=== PATIENT | female | born 1935 | race Caucasian/White ===

== ENCOUNTER 2024-12-09 14:46 | Outpatient (AMB) | payer MEDICARE, SELFPAY ==
--- NOTE | 2024-12-09 14:48 | MHC.OFFVIS ---
Intake Visit Reasons: delirium Medication List - Last Reconciled 12/09/24 by Santy Parham MD acetaminophen 325 mg PO QID PRN amlodipine 5 mg PO DAILY furosemide 40 mg PO DAILY losartan 50 mg PO DAILY potassium chloride ER 20 mEq PO BID ropinirole ER 4 mg PO BEDTIME sertraline 75 mg PO DAILY sotalol 160 mg PO BID trazodone 50 mg PO BEDTIME warfarin 2 mg PO DAILY HPI Comments Details: 89 yo RH woman with h/o a fibb on anticoagulation was here with her two daughters for explanation of her clinical picture or symptoms. As per her daughter, her first episode with change in mental status happened in May when she was noted to be paranoid and delusional. She was taken to [facility] and probably was prescribed olanzapine. After that she was referred to Dr. Orozco. She took olanzapine after a few weeks as she got better. She had another episode a year later when she was taken to [facility] with same symptoms. She was accusing everybody and was confused. She was given diagnosis of dementia with psychosis. More recently, in Jan 2024 she was in [facility] again with another psychotic event. Previously she was also given risperidone and haloperidol but apparently she did not take it. She was distraught saying that nothing was wrong with her and she wanted to go home. [facility] Medical History (Updated 12/09/24 @ 16:01 by Santy Parham MD) Senile osteoporosis Right shoulder pain RLS (restless legs syndrome) Rectocele Insomnia HLD (hyperlipidemia) Hypertension FH: total knee replacement Carotid stenosis Atrial fibrillation Aortic stenosis Surgical History (Updated 12/07/24 @ 10:45 by Og Blackburn MA) Hx of total knee arthroplasty H/O eye surgery History of carpal tunnel release H/O aortic valve replacement H/O cystocele repair Review of Systems Const Details: Constitutional:?No fever, chills, fatigue, weight loss, or night sweats. HEENT:?No headache, vision changes, hearing loss, nasal congestion, sore throat. Cardiovascular:?No chest pain, palpitations, orthopnea, PND, or leg swelling. Respiratory:?No cough, shortness of breath, wheezing, or hemoptysis. Gastrointestinal:?No nausea, vomiting, abdominal pain, diarrhea, or constipation. Genitourinary:?No dysuria, frequency, incontinence, or hematuria. Musculoskeletal:?No joint pain, stiffness, weakness, or muscle aches. Neurological:?Denies any problem with memory or mentation Psychiatric:?Anxious, stressed. Endocrine:?No heat/cold intolerance, polydipsia, polyuria, or hair/skin changes. Hematologic/Lymphatic:?No easy bruising, bleeding, or lymphadenopathy. Integumentary (Skin):?No rash, lesions, itching, or color changes. Allergic/Immunologic:?No seasonal allergies, hives, or recurrent infections. Physical Exam Neuro Other: Mental Status: Alert and oriented to person, place, and time. Normal attention. Normal spontaneous speech, fluency, and comprehension. MMS: 29. She was also distraught, started crying, and was blaming her daughters for whatever was happening. Cranial Nerves: CN II: Visual howard full to confrontation, visual acuity intact. CN III, IV, : Pupils equal, round, reactive to light and accommodation. Extraocular movements are normal. CN V: Facial sensation is normal. CN VII: Facial movements symmetrical. CN VIII: Hearing intact to bedside conversation is normal. CN IX, X: Palate elevates symmetrically. CN XI: Shoulder shrug and head turn symmetrical. CN XII: Tongue midline without atrophy or fasciculations. Motor: DTRs are 1+ with flexor planters. Coordination: [id number] is ok Gait and Station: Cautious. Extrapyramidal: Full facial expressions and blinking. No rigidity. Movements are appropriate with no tremor or abnormality. Speech: Normal; no dysarthria or tremor. Assessment & Plan Assessment & Plan (1) Dementia without behavioral disturbance, psychotic disturbance, mood disturbance, or anxiety: Comment: MRI brain WO at [facility] in October 2024: Mild biparietal atrophy, mild MVD Labs at [facility] in September of 2024: B12 was 476, TSH was 0.38, metabolic profile was normal. Code(s): F03.90 - Unspecified dementia, unspecified severity, without behavioral disturbance, psychotic disturbance, mood disturbance, and anxiety Category: Medical Qualifiers: Dementia type: unspecified type Dementia severity: moderate Qualified Code(s): F03.B0 - Unspecified dementia, moderate, without behavioral disturbance, psychotic disturbance, mood disturbance, and anxiety Plan Impression: 89 yo woman who was sent here for possibility of dementia. As per her daughter, her problem started around 2021 when she was noted to have symptoms of paranoia and delusion and was admitted [facility]. In the hospital, she was probably treated with olanzapine which she took for few weeks afterwards. She was referred to a neurologist in [place] but it is not clear if she continue to take any antipsychotic medicine. She did get better but had another similar episode a year later when she was admitted again either and [facility] or in [facility]. Daughter stated that hospital wanted to give her haloperidol but she, her daughter, was concerned about it and was not given. Probably risperidone was prescribed, which she probably did not take it on regular basis or for long. In any case, she got better again but had another similar episode a year later. More recently she was at [facility] with complaints of shortness of breath and was noted to be with behavioral symptomatology. Patient believe that there was nothing wrong with her while her daughter stated that she was unable to take care of her affairs and head symptoms of delusions and paranoia and was accusing her daughters of things that were not true. Her formal mini-mental status examination revealed no significant abnormality. On the other hand, her behavior was abnormal with significant distraught, anxiety, restlessness, an augmentation with the daughter. She continued to complain about [facility] in how that was responsible for her condition. Recommendations: My recommendation was to have geriatric psychiatric team evaluate her for either inpatient or outpatient proper behavioral counseling, therapy, and pharmacological treatment. I call emergency room downstairs and asked him to have her evaluated. My staff would help her go down with the daughters. Coding Level of Care Code Tele [facility] Pt Level 5 (51165) Diagnoses Moderate dementia without behavioral disturbance, psychotic disturbance, mood disturbance, or anxiety, unspecified dementia type F03.B0 Dementia type: unspecified type Dementia severity: moderate
--- OUTSIDE RECORDS SUMMARY | 2024-12-09 15:20 | XMS_ITS | Clinical Summary ---
Author Organization [address] Address [address] [place] [phone] Phone Care Team Providers Care Deck Supervisor Name Role Phone Sixto Bustamante MD Primary Care Provider [phone] Allergies Active Allergy Reactions Criticality Noted Date Comments Naproxen Hives 09/07/2024 Medications acetaminophen (TYLENOL) 325 mg tablet Take 2 tablets (650 mg total) by mouth if needed. 4 Active amLODIPine (NORVASC) 5 mg tablet Take 1 tablet (5 mg total) by mouth 1 (one) time each day. 4 Active traZODone (DESYREL) 50 mg tabletIndicatio ns:Insomnia, unspecified Take 1 tablet (50 mg total) by mouth at bedtime. 90 tablet 1 5 Active sotaloL (BETAPACE) 160 mg tablet Take 1 tablet (160 mg total) by mouth 2 (two) times a day. 180 tablet 1 5 Active potassium chloride (KLOR-CON) 20 mEq CR tablet Take 1 tablet (20 mEq total) by mouth 2 (two) times a day. 180 tablet 1 5 Active furosemide (LASIX) 40 mg tablet Take 1 tablet (40 mg total) by mouth 1 (one) time each day. 135 tablet 1 5 Active warfarin (COUMADIN) 2 mg tablet Take 1 tablet (2 mg total) by mouth 1 (one) time each day. 90 tablet 5 Active ipratropium-alb uteroL (DUONEB) 0.5-2.5 mg/3 mL nebulizer solutionIndicat ions:Acute hypoxemic respiratory failure (CMS/[facility] V24, CMS/[facility] V28) Take 3 mL by nebulization every 6 (six) hours. 360 mL 5 Active losartan (COZAAR) 50 mg tablet Take 1 tablet (50 mg total) by mouth 1 (one) time each day. Active rOPINIRole (REQUIP) 2 mg tablet Take 2 tablets (4 mg total) by mouth at bedtime. 180 each 3 5 11/10/19 26 Active sertraline (ZOLOFT) 25 mg tablet Take 3 tablets (75 mg total) by mouth 1 (one) time each day. 270 each 5 02/08/20 25 Active Active Problems Problem Noted Date Diagnosed Date Acute hypoxemic respiratory failure ([facility] V24, [facility] V28) 10/14/2024 Acromioclavicular joint arthritis 05/04/2024 Hyperlipidemia 05/04/2024 Overview (05/04/2024): Last Assessment & Plan: The patient has a history of CAD. She is currently not on any lipid-lowering therapy. Will order a lipid panel to evaluate her lipid control and then we will need to make any adjustments in her lipid-lowering therapy. Insomnia 05/04/2024 Rotator cuff tear arthropathy of right shoulder 05/04/2024 Subacromial bursitis of right shoulder joint 01/2024 PAF (paroxysmal atrial fibri llation) ([facility] V24, [facility] V28) 04/15/2024 Assessment & Plan (09/07/2024 9:59 AM EDT): Patient with history of paroxysmal atrial fibrillation, continuing on anticoagulation therapy with Coumadin. She denies any abnormal bleeding. Her heart rate is well-controlled today at 80 bpm and is in a sinus rhythm. She continues on sotalol, no increased QTc was noted on her EKG from previous. Unspecified diastolic (conge stive) heart failure (CMS/HCC V24, CMS/HCC V28) 02/18/2024 Delirium due to known physiological condition Hypo-osmolality and hyponatremia 02/18/2024 Urinary tract infection, site not specified 01/26 Anemia 05/11/2022 CAD (coronary artery disease) 05/11/2022 Overview (05/04/2024): Last Assessment & Plan: Patient has a history of coronary artery disease. At her last office visit, she was reporting symptoms of exertional dyspnea and underwent an echocardiogram and pharmacological nuclear stress test. The stress test was noted to be likely normal with TID elevated/abnormal. LVEF was normal. After her stress test was completed, we discussed these results in depth. We discussed that her symptoms of dyspnea could have multiple etiologies and that if clinical suspicion for CAD is high of an alternative modality could be considered with a cardiac CT scan. At that time, the patient did not want to undergo further testing. We discussed this again today in depth and discussed with her daughter as well. Her symptoms are very mild and have not been limiting her activity levels. She denies any anginal symptoms. She does not want to undergo further testing at this point given her symptoms are stable. She will notify me of any changes in her symptoms. She will continue on her cardioprotective medical therapy with amlodipine and warfarin as prescribed. Assessment & Plan (09/07/2024 9:59 AM EDT): Patient has history of nonobstructive CAD. She denies chest discomfort. Her dyspnea on exertion has not worsened from her baseline. She reports it is progressively increased with exertion over the past several years. She denies episodes of dyspnea at rest. She had a likely normal nuclear stress test in September 2023. It was recommended after that nuclear stress test for her to undergo a cardiac CT, yet she declined. She continues on amlodipine and coumadin. Patient advised to seek emergency medical attention by calling 911 if they were to develop severe dyspnea, chest pain that did not resolve with rest or nitroglycerin, or if they were to faint. I have reviewed with the patient the importance of a heart healthy lifestyle which includes eating a low-fat low-salt diet, getting regular exercise, maintaining a healthy weight, not smoking, and following up with routine medical care. Orders: Ambulatory referral to Cardiology ECG 12 lead Depression with anxiety 05/11/2022 E coli bacteremia 05/11/2022 Hyperbilirubinemia 05/11/2022 Mitral regurgitation 05/11/2022 Sepsis ([facility] V24, [facility] V28) 05/11/2022 Swelling of lower extremity 05/11/2022 Syncope 05/11/2022 Overview (05/04/2024): Last Assessment & Plan: Patient denies any recurrent issues with syncope. 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 We will continue to monitor for any recurrent symptoms. Dyspnea 03/12/2022 Overview (05/04/2024): Last Assessment & Plan: The patient has a longstanding history of dyspnea on exertion sensation which may be multifactorial with multiple etiologies. On today's visit, she reports that her symptoms are mild and have not worsened and she continues to participate in her daily activities without significant limitations. We discussed this in depth today. She underwent a pharmacological nuclear stress test as outlined above as well as an echocardiogram. At this point, she does not want to undergo further testing with pulmonary function testing or cardiac CT scan. She will continue her current therapies and notify me of any changes in her symptoms. Patient advised to seek emergency medical attention by calling 911 if they were to develop severe dyspnea, chest pain that did not resolve with rest, or if they were to faint. AMS (altered mental status) 03/08/2022 Right shoulder pain 09/15/2020 Glenohumeral arthritis, right 02/25/2019 Balance problem 01/06/2019 Arthritis of knee, right 01/06/2019 Anxiety 10/28/2018 Primary osteoarthritis of right knee 09/30/2018 Restless leg syndrome 04/16/2018 Knee pain 03/24/2018 Overview (05/04/2024): F/u ortho Dr. Malhotra History of total knee replacement 03/11/2018 Overview (05/04/2024): Left Dr. Malhotra 2016 COPD (chronic obstructive pu lmonary disease) ([facility] V24, [facility] V28) 02/21/2018 Dizziness 12/26/2017 Elevated blood pressure reading 12/26/2017 Labile blood pressure 12/26/2017 Right bundle branch block (RBBB) 12/26/2017 H/O aortic valve replacement 09/17/2016 Overview (05/04/2024): Comments: DR MARTIN AT [facility] [place] BIOPROSTHETIC VALVE IN 2013, cardiology f/u Dr. Dumont Last Assessment & Plan: Her valve is been stable. She has no symptoms from this. We will continue to monitor this. She will be getting an echocardiogram done due to her recent dyspnea and this will be also an evaluation of her aortic valve. Carotid stenosis 03/21/2016 Aortic stenosis 01/11/2016 Overview (05/04/2024): Comments: porcine valve Last Assessment & Plan: Patient has a history of aortic valve stenosis status post bioprosthetic aortic valve replacement via TAVR in 2014. She underwent an echocardiogram July 2023 which showed bioprosthetic aortic valve well-seated and functioning normally. Will continue to monitor with periodic echocardiograms. Assessment & Plan (09/07/2024 9:59 AM EDT): Patient has history of aortic valve stenosis status post TAVR in 2014. Her last echocardiogram was completed in July 2023 which showed the bioprosthetic aortic valve was well-seated and functioning normally. Will continue to monitor and update echocardiogram. Patient has been educated on endocarditis prophylaxis. Orders: Transthoracic echocardiogram (TTE) complete with PRN contrast, bubble, strain, and 3D order panel; Future perflutren lipid microsphere (DEFINITY) 1.3 mL in sodium chloride 0.9% 8.7 mL injection Spinal stenosis 06/03/2015 Bladder prolapse, female, acquired 04/12/2015 Rectocele 04/12/2015 HTN (hypertension) 07/17/2005 Overview (05/04/2024): Last Assessment & Plan: Patient's blood pressure is well-controlled today with a reading 120/70. She will continue her current hypertensive medication regimen as prescribed. Assessment & Plan (09/07/2024 9:59 AM EDT): Blood pressure is well-controlled today, continue on current antihypertensive medication regimen. Obesity, unspecified 07/17/2005 Senile osteoporosis 07/17/2005 Encounters Date Type Department Care Team Description 12/09/2024 Anticoagulation - Warfarin Visit [facility] [address] [facility] [address] [place] [phone] Andrew Cisneros MD PAF (paroxysmal atrial fibrillation) (CMS/HCC V24, CMS/HCC V28) (Primary Dx) 12/08/2024 1:55 PM EDT Lab Draw Station - [place] [address] [place] [address] Atrial fibrillation, unspecified type (CMS/HCC V24, CMS/HCC V28) 11/20/2024 8:12 AM EDT - 11/20/2024 11:59 PM EDT Hospital Encounter [facility] MRI [address] [place] [phone] Delirium due to known physiological condition Discharge Disposition: Home or Self Care 11/17/2024 12:30 PM EDT Ancillary Procedure [facility] [address] Daljit [address] [place] [phone] Aortic valve stenosis, etiology of cardiac valve disease unspecified 11/17/2024 Telephone [facility] [address] Daljit [address] [place] [phone] Juno Coffman Hypertension (Blood pressure was 193/101 pre exam with an automatic machine. Post exam b/p was still high at 183/107 again with the automatic machine. The patient refused to talk to an REGINALD and was determined to leave. I had a chance to talk to the daughter and told her about the high blood pressure. So at least she knows.) 11/13/2024 Anticoagulation - Warfarin Visit [facility] [address] [place] [phone] Andrew Cisneros MD PAF (paroxysmal atrial fibrillation) ([facility]/HCC V24, CMS/HCC V28) (Primary Dx) 11/10/2024 Telephone [facility] - [place] [address] [facility] [address] [place] [address] Sixto Bustamante MD 11/09/2024 Telephone Internal Medicine [facility] [address] [facility] [address] [place] [phone] Sixto Bustamante MD 11/05/2024 Anticoagulation - Warfarin Visit [facility] [address] [place] [phone] Andrew Cisneros MD PAF (paroxysmal atrial fibrillation) (CMS/HCC V24, CMS/HCC V28) (Primary Dx) 10/29/2024 11:35 AM EDT Lab Draw Station [facility] [address] [place] [phone] Atrial fibrillation, unspecified type (CMS/HCC V24, CMS/HCC V28) 10/29/2024 Anticoagulation - Warfarin Visit [facility] [address] [place] [phone] Andrew Cisneros MD PAF (paroxysmal atrial fibrillation) (CMS/HCC V24, CMS/HCC V28) (Primary Dx) 10/26/2024 Telephone Internal Medicine [facility] [address] [facility] [address] [place] [phone] Sixto Bustamante MD Appointment (neurology) 10/22/[address] [facility] [address] [place] [phone] Delma Ibanez, [employer] COPD 10/21/2024 10:30 AM EDT Office Visit Internal Medicine [facility] [address] [facility] [address] [place] [phone] Sixto Bustamante MD Hospital discharge follow-up (Primary Dx); Acute respiratory failure, unspecified whether with hypoxia or hypercapnia (CMS/HCC V24, CMS/HCC V28); Depression with anxiety; Delirium due to known physiological condition; Chronic diastolic congestive heart failure (CMS/HCC V24, CMS/HCC V28); PAF (paroxysmal atrial fibrillation) (CMS/HCC V24, CMS/HCC V28); Primary hypertension 10/21/2024 Anticoagulation - Warfarin Visit [facility] [address] [place] [address] Andrew Cisneros MD PAF (paroxysmal atrial fibrillation) ([facility]/HCC V24, CMS/HCC V28) (Primary Dx) 10/20/2024 Anticoagulation - Warfarin Visit [facility] [address] [place] [address] Andrew Cisneros MD PAF (paroxysmal atrial fibrillation) ([facility] V24, [facility] V28) (Primary Dx) 10/20/2024 Telephone Internal Medicine [facility] [address] [phone] Sixto Bustamante MD Hospital Follow-up 10/14/2024 10:22 AM EDT - 10/16/2024 5:30 PM EDT Hospital Encounter [facility] [address] [place] [phone] Zuleika Mayer MD Nasser, Nada S, MD Dyspnea, unspecified type (Primary Dx); Acute bronchiolitis due to human metapneumovirus; Hypoxia; Acute hypoxemic respiratory failure ([facility] V24, CMS/HCC V28); Swelling of lower extremity; Chronic obstructive pulmonary disease with acute lower respiratory infection ([facility] V24, [facility]/HCC V28) Discharge Disposition: [place] [facility]06/2024 Telephone Internal Medicine [facility] [address] [phone] Sixto Bustamante MD Joseph: Medication problem 09/22/2024 11:15 AM EDT Lab Draw Station [facility] [address] [place] [phone] Atrial fibrillation, unspecified type ([facility] V24, [facility]/HCC V28) 09/22/2024 Anticoagulation - Warfarin Visit [facility] [address] [place] [address] Andrew Cisneros MD PAF (paroxysmal atrial fibrillation) ([facility] V24, [facility] V28) (Primary Dx) from Last 3 Months Immunizations Name Administration Dates Next Due Influenza Quadravalent, 0.5m l (Fluad) 65yo and older 03/07/2023,05/04/2021 Influenza Quadravalent, MDCK , 0.5ml, preservative free (Flucelvax) 6mo and older 02/12/2017 Influenza trivalent, 0.5mL ( Fluad) 65yo and older 03/31/2015 Influenza trivalent, 0.5mL ( Fluzone High-dose) 65yo and older 04/06/2024,03/15/2019,03/30/2018 Influenza trivalent, 0.5mL, preservative free (Fluarix; FluLaval; Fluzone) ages 6mo and older (Afluria) 3 years and older 02/04/2020,03/21/2016,03/02/2014,05/30 Influenza, Unspecified 02/14/2020 PPD Test 02/19/2024 Pneumococcal conjugate 13 va lent (Prevnar 13, PCV13) 2mo and older 09/15/2014 Pneumococcal conjugate 20 va lent (Prevnar 20, PCV 20) 2mo and older 02/21/2024 Pneumococcal polysaccharide 23 valent (Pneumovax 23) 2yo and older 09/13/2014,01/25/2001,10/31/2000 RSV, bivalent, protein subun it RSVpreF, 0.5mL, Preservative Free (ABRYSVO) 60yo and older or 32 through 36 wks of 03/07/2023 Td Tetanus diptheria (Tdvax) 7yo and older 10/31/2000,10/25/2000 Td, Unspecified 10/31/2000 Zoster Live 08/25/2014 Surgical History Surgery Date Site/Laterality Comments CARPAL TUNNEL RELEASE -2017 Right PROCEDURE: HISTORICAL CARPAL TUNNEL REL; COMMENT: Dr. Malhotra AORTIC VALVE REPLACEMENT 2014 PROCEDURE: HISTORICAL AORTIC VALVE REPL TOTAL KNEE ARTHROPLASTY 2016 Left PROCEDURE: HISTORICAL TOTAL KNEE REPLACE; COMMENT: Dr. Malhotra EYE SURGERY Bilateral PROCEDURE: HISTORICAL EYE SURGERY; COMMENT: Dr. Lawler- cataracts Medical History Medical History Date Comments Personal history of tobacco use, presenting hazards to health 07/17/2005 DX:Personal history of to bacco use, presenting hazards to health Senile osteoporosis 07/17/2005 DX:Senile os teoporosis Aortic stenosis 01/11/2016 DX:Aortic stenos is; COMMENT: Comments: porcine valve Atrial fibrillation ([facility] V24, [facility] V28) 07/31/2017 DX:Atrial fibrillation (HCC) Carotid stenosis 03/21/2016 DX:Carotid sten osis Cystocele 04/12/2015 DX:Cystocele Rectocele 04/12/2015 DX:Rectocele Spinal stenosis 06/03/2015 DX:Spinal stenos is History of total knee replacement 03/11/2018 DX:History of total knee replacement HTN (hypertension) 07/17/2005 DX:HTN (hyper tension) Restless leg syndrome 07/17/2005 DX:Restles s leg syndrome Hyperlipidemia DX:Hyperlipidemi a Insomnia DX:Insomnia Right shoulder pain DX:Right ramu ulder pain Family History Relation Name Status Comments Daughter Alive Social History Tobacco Use Types Packs/Day Years Used Date Smoking Tobacco: Former Cigarettes Q uit: 06/18/2014 Smokeless Tobacco: Never Alcohol Use Standard Drinks/Week Comments Yes 0 (1 standard drink = 0.6 oz pur e alcohol) 1 drink per wk Interpersonal Safety Answer Date Record ed Physical Abuse 10/14/2024 Verbal Abuse 10/14/2024 Comments No Sex and Gender Information Value Date Recorded Sex Assigned at Not on file Legal Sex Female 1:43 PM EST Gender Identity Not on file Sexual Orientation Not on file Obstetrics History Last Filed Vital Signs Vital Sign Reading Time Taken Comments Blood Pressure 193/101 11/17/2024 1:27 PM EDT Pulse 72 10/21/2024 10:26 AM EDT Temperature 36.6 C (97.9 F) 10/21/2024 10:26 AM EDT Respiratory Rate 20 10/16/2024 9:00 AM EDT Oxygen Saturation 94% 10/21/2024 10:26 AM EDT Inhaled Oxygen Concentration - - Weight 70.8 kg (156 lb) 11/17/2024 1:27 PM EDT Height 152.4 cm (5') 11/17/2024 1:27 PM EDT Body Mass Index 30.47 11/17/2024 1:27 PM EDT Plan of Treatment Health Maintenance Due Date Last Done Comments DTaP,Tdap,and Td Vaccines (4 - Td or Tdap) 10/31/2010 10/31/2000, 10/31/2000, 10/25/2000 Zoster Vaccines (2 of 3) 10/20/2014 08/25/2014 Cholesterol Screening (Lipid Panel) 05/03/2022 Medicare Annual Wellness Visit 05/03/2022 Osteoporosis Screening (Bone Density Screening) 05/03/2022 Social Influencers of Health Screening 05/03/2022 COVID-19 Vaccine (4 - season) 2024 06/17/2022, 07/15/2020, 06/24/2020 Depression Screening 05/27/2024 Influenza Vaccine (#1) 2025 , 03/07/2023, 05/04/2021, Additional history exists Falls Risk Assessment 10/16/2025 10/16/2024 Hypertension/CHF/CAD Annual BMP Blood Test 10/16/2025 10/16/2024, 10/15/2024, 10/14/2024, Additional history exists RSV Immunization Adult Patients Completed 03/07/2023 Pneumococcal Vaccine: 50+ Years Completed 02/21/2024, 09/15/2014, 09/13/2014, Additional history exists HIB Vaccines Aged Out No longer eligi ble based on patient's age to complete this topic HPV Vaccines Aged Out No longer eligi ble based on patient's age to complete this topic Hepatitis A Vaccines Aged Out No long er eligible based on patient's age to complete this topic Hepatitis B Vaccines Aged Out No long er eligible based on patient's age to complete this topic IPV Vaccines Aged Out No longer eligi ble based on patient's age to complete this topic MMR Vaccines Aged Out No longer eligi ble based on patient's age to complete this topic Meningococcal ACWY Vaccine Aged Out N o longer eligible based on patient's age to complete this topic Meningococcal B Vaccine Aged Out No l onger eligible based on patient's age to complete this topic RSV Immunization Patients Under 20 months Aged Out No longer eligible based on patient's age to complete this topic Varicella Vaccines Aged Out No longer eligible based on patient's age to complete this topic Procedures Procedure Name Priority Date/Time Associated Diagnosis Comments PROTHROMBIN TIME WITH INR Routine 12/08/2024 1:52 PM EDT Atrial fibrillation, unspecified type (CMS/HCC V24, CMS/HCC V28) MR BRAIN WO CONTRAST Routine 11/20/2024 9:03 AM EDT Delirium due to known physiological condition PROTHROMBIN TIME WITH INR Routine 11/13/2024 11:58 AM EDT Atrial fibrillation, unspecified type (CMS/HCC V24, CMS/HCC V28) PROTHROMBIN TIME WITH INR Routine 11/05/2024 10:17 AM EDT Atrial fibrillation, unspecified type (CMS/HCC V24, CMS/HCC V28) PROTHROMBIN TIME WITH INR Routine 10/29/2024 11:43 AM EDT Atrial fibrillation, unspecified type (CMS/HCC V24, CMS/HCC V28) PROTHROMBIN TIME WITH INR Routine 10/21/2024 12:30 PM EDT Atrial fibrillation, unspecified type (CMS/HCC V24, CMS/HCC V28) ECG ANNOTATED 10/17/2024 TRIIODOTHYRONINE FREE Routine 10/16/2024 5:42 AM EDT FREE THYROXINE WITH REFLEX TO FREE TRIIODOTHYRONINE Routine 10/16/2024 5:42 AM EDT CBC WITH AUTO DIFFERENTIAL Routine 10/16/2024 5:42 AM EDT TROPONIN I HIGH SENSITIVITY Routine 10/16/2024 5:42 AM EDT THYROID STIMULATING HORMONE WITH REFLEX TO FREE T4 AND FREE T3 Routine 10/16/2024 5:42 AM EDT PHOSPHORUS Routine 10/16/2024 5:42 AM EDT MAGNESIUM Routine 10/16/2024 5:42 AM EDT COMPREHENSIVE METABOLIC PANEL Routine 10/16/2024 5:42 AM EDT PROTHROMBIN TIME WITH INR Routine 10/16/2024 5:42 AM EDT CBC AND DIFFERENTIAL Routine 10/16/2024 5:42 AM EDT OXYGEN THERAPY, ADULT Routine 10/15/2024 8:02 AM EDT VITAMIN B12 Add-On 10/15/2024 6:39 AM EDT PHOSPHORUS Add-On 10/15/2024 6:39 AM EDT MAGNESIUM Add-On 10/15/2024 6:39 AM EDT C-REACTIVE PROTEIN Add-On 10/15/2024 6: 39 AM EDT PROTHROMBIN TIME WITH INR Routine 10/15/2024 6:39 AM EDT COMPLETE BLOOD COUNT Routine 10/15/2024 6:39 AM EDT BASIC METABOLIC PANEL Routine 10/15/2024 6:39 AM EDT OXYGEN THERAPY, ADULT Routine 10/14/2024 8:01 PM EDT ECG 12-LEAD STAT 10/14/2024 5:37 PM EDT OXYGEN THERAPY, ADULT Routine 10/14/2024 2:52 PM EDT OXYGEN THERAPY, ADULT Routine 10/14/2024 2:[address] ANGIO CHEST WO AND/OR W CONTRAST STAT 10/14/2024 2:03 PM EDT Dyspnea, unspecified type RESPIRATORY VIRUS PANEL MOLECULAR STUDY STAT 10/14/2024 12:52 PM EDT TROPONIN I HIGH SENSITIVITY STAT 10/14/2024 12:51 PM EDT XR CHEST 2 VIEWS STAT 10/14/2024 12:4 2 PM EDT MAGNESIUM STAT 10/14/2024 11:14 AM EDT B-TYPE NATRIURETIC PEPTIDE STAT 10/14/2024 11:14 AM EDT PROTHROMBIN TIME WITH INR STAT 10/14/2024 11:14 AM EDT CBC WITH AUTO DIFFERENTIAL STAT 10/14/2024 11:14 AM EDT TROPONIN I HIGH SENSITIVITY STAT 10/14/2024 11:14 AM EDT BASIC METABOLIC PANEL STAT 10/14/2024 11:14 AM EDT CBC AND DIFFERENTIAL STAT 10/14/2024 11:14 AM EDT ECG 12-LEAD STAT 10/14/2024 10:40 AM EDT PROTHROMBIN TIME WITH INR Routine 09/22/2024 11:19 AM EDT Atrial fibrillation, unspecified type (CMS/HCC V24, CMS/HCC V28) from Last 3 Months Results * (ABNORMAL) Prothrombin time with INR (12/08/2024 1:52 PM EDT) Only the most recent of9 resultswithin the time period is included. Protime 16.7(H) 10.6 - 13.9 sec LAB COAGULATION METHOD 12/08/2024 4:[address] [facility] INR 1.3 LAB COAGULATION METHOD 12/08/2024 4:[address] [facility] Blood Venous blood specimen / Unknown Venipuncture / Unknown 12/08/2024 1:52 PM EDT 12/08/2024 1:52 PM EDT us Andrew Cisneros MD LAB BLOOD ORDERABLES F inal Result [facility] [address] [place] [address], * MR Brain wo Contrast (11/20/2024 9:03 AM EDT) Anatomical Region Laterality Modality Head and Neck Magnetic Resonan ce 11/20/2024 9:49 AM EDT Impressions 11/20/2024 9:51 AM EDT No acute intracranial findings. Age commensurate MRI appearance of the brain. -------- FINAL REPORT -------- Dictated By: Juno Russo Dictated Date: 11/20/2024 09:49 ET Assigned Physician: Juno Russo Reviewed and Electronically Signed By: Juno Russo Signed Date: 11/20/2024 09:51 ET Workstation ID: [id number] Transcribed By: Self Edit Transcribed Date: 11/20/2024 09:49 ET Narrative 11/20/2024 9:51 AM EDT PROCEDURE: Noncontrast MRI of the brain. HISTORY: Mental status change, unknown cause. COMPARISON: Head CT 12/03/2019. TECHNIQUE: Multiplanar multisequence MRI of the brain without intravenous contrast administration. FINDINGS: BRAIN: No diffusion abnormality. No mass or extra-axial fluid collection. No hydrocephalus. The major intracranial flow voids are preserved. Age commensurate ventricles and sulci. Scattered T2 hyperintensities in the supratentorial white matter, nonspecific but likely sequela of mild chronic microvascular ischemic disease in a patient of this age ORBITS: Lens implants. SINUSES/MASTOIDS: Small amount of layering fluid in the right maxillary antrum. CALVARIUM: Normal. OTHER: The visualized skull base soft tissues are normal. Partially visible degenerative changes of the cervical spine. Procedure Note Juno Russo MD - 11/20/2024 PROCEDURE: Noncontrast MRI of the brain. HISTORY: Mental status change, unknown cause. COMPARISON: Head CT 12/03/2019. TECHNIQUE: Multiplanar multisequence MRI of the brain without intravenouscontrast administration. FINDINGS: BRAIN: No diffusion abnormality. No mass or extra-axial fluid collection.No hydrocephalus. The major intracranial flow voids are preserved. Agecommensurate ventricles and sulci. Scattered T2 hyperintensities in thesupratentorial white matter, nonspecific but likely sequela of mildchronic microvascular ischemic disease in a patient of this age ORBITS: Lens implants. SINUSES/MASTOIDS: Small amount of layering fluid in the right maxillaryantrum. CALVARIUM: Normal. OTHER: The visualized skull base soft tissues are normal. Partiallyvisible degenerative changes of the cervical spine. IMPRESSION: No acute intracranial findings. Age commensurate MRI appearance of thebrain. -------- FINAL REPORT -------- Dictated By: Juno Russo Dictated Date: 11/20/2024 09:49 ET Assigned Physician: Juno Russo Reviewed and Electronically Signed By: Juno Russo Signed Date: 11/20/2024 09:51 ET Workstation ID: [id number] Transcribed By: Self Edit Transcribed Date: 11/20/2024 09:49 ET us Sixto Bustamante MD IMG MRI PROCEDURES Final Result * ECG-Annotated (10/17/2024) us Provider Onbase ECG ORDERABLES Final Result * Troponin I high sensitivity (10/16/2024 5:42 AM EDT) Only the most recent of3 resultswithin the time period is included. High Sensitivity Troponin I 9 <=54 ng/L LAB CHEMISTRY METHOD 10/16/2024 7:[address] [facility] Blood Venous blood specimen / Unknown Venipuncture / Unknown 10/16/2024 5:42 AM EDT 10/16/2024 6:[address] [facility] - 10/16/2024 7:30 AM EDT High levels of biotin in samples may falsely decrease hsTroponin values. Use caution when interpreting hsTroponin results in patients taking biotin who exhibit renal impairment (eGFR <60) or in patients taking more than 20 mg/day of biotin. us Amanda Matthew MD LAB BLOOD ORDERABLES Final Resu lt Performing Organization Address City/[facility]/ZIP Co de Phone Number [facility] [address] [place] [address], [place] [phone] * (ABNORMAL) Thyroid stimulating hormone with reflex to free t4 and free t3 (10/16/2024 5:42 AM EDT) TSH 0.38(L) 0.40 - 4.00 mcIU/mL LAB CHEMISTRY METHOD 10/16/2024 10:[address] [facility] Blood Venous blood specimen / Unknown Venipuncture / Unknown 10/16/2024 5:42 AM EDT 10/16/2024 6:35 AM EDT us Amanda Matthew MD LAB BLOOD ORDERABLES Final Resu Performing Organization Address [facility] Co de Phone Number [facility] [address] [place] [address], [place] [phone] * Free thyroxine with reflex to free triiodothyronine (10/16/2024 5:42 AM EDT) Free T4 1.42 0.70 - 1.80 ng/dL LAB CHEMISTRY METHOD 10/16/2024 10:[address] [facility] Blood Venous blood specimen / Unknown Venipuncture / Unknown 10/16/2024 5:42 AM EDT 10/16/2024 6:35 AM EDT us Amanda Matthew MD LAB BLOOD ORDERABLES Final Resu lt Performing Organization Address [facility]/ZIP Co de Phone Number [facility] [address] [place] [address], [place] [phone] * (ABNORMAL) CBC auto differential (10/16/2024 5:42 AM EDT) Only the most recent of2 resultswithin the time period is included. WBC 4.5(L) 4.8 - 10.8 K/mcL LAB HEMETOLOGY METHOD 10/16/2024 7:27 AM [facility] RBC 4.20 3.80 - 4.80 M/mcL LAB HEMETOLOGY METHOD 10/16/2024 7:27 AM [facility] Hemoglobin 12.8 11.5 - 16.0 g/dL LAB HEMETOLOGY METHOD 10/16/2024 7:27 AM [facility] Hematocrit 40.1 35.0 - 47.0 % LAB HEMETOLOGY METHOD 10/16/2024 7:27 AM [facility] MCV 94.6 79.0 - 98.0 FL LAB HEMETOLOGY METHOD 10/16/2024 7:27 AM [facility] MCH 30.2 27.0 - 32.0 pcg LAB HEMETOLOGY METHOD 10/16/2024 7:27 AM [facility] MCHC 31.9(L) 32.0 - 37.0 g/dL LAB HEMETOLOGY METHOD 10/16/2024 7:27 AM [facility] RDW 14.0 11.0 - 15.0 % LAB HEMETOLOGY METHOD 10/16/2024 7:27 AM [facility] Platelets 188 130 - 400 K/mcL LAB HEMETOLOGY METHOD 10/16/2024 7:27 AM [facility] MPV 10.3 7.0 - 11.0 FL LAB HEMETOLOGY METHOD 10/16/2024 7:27 AM [facility] NRBC 0.0 <1.0 % LAB HEMETOLOGY METHOD 10/16/2024 7:27 AM [facility] NRBC Absolute 0.00 <0.10 K/mcL LAB HEMETOLOGY METHOD 10/16/2024 7:27 AM [facility] Neutrophils Relative 53.0 % LAB HEMETOLOGY METHOD 10/16/2024 7:27 AM [facility] Comment:This is an appended report. These results have been appended to a previously preliminary verified report. Lymphocytes Relative 32.3 % LAB HEMETOLOGY METHOD 10/16/2024 7:27 AM [facility] Comment:This is an appended report. These results have been appended to a previously preliminary verified report. Monocytes Relative 14.1 % LAB HEMETOLOGY METHOD 10/16/2024 7:27 AM [facility] Comment:This is an appended report. These results have been appended to a previously preliminary verified report. Eosinophils Relative 0.2 % LAB HEMETOLOGY METHOD 10/16/2024 7:27 AM [facility] Comment:This is an appended report. These results have been appended to a previously preliminary verified report. Basophils Relative 0.2 % LAB HEMETOLOGY METHOD 10/16/2024 7:27 AM [facility] Comment:This is an appended report. These results have been appended to a previously preliminary verified report. Immature Granulocytes Relative 0.2 % LAB HEMETOLOGY METHOD 10/16/2024 7:27 AM [facility] Comment:This is an appended report. These results have been appended to a previously preliminary verified report. Neutrophils Absolute 2.36 1.50 - 7.00 K/mcL LAB HEMETOLOGY METHOD 10/16/2024 7:27 AM [facility] Comment:This is an appended report. These results have been appended to a previously preliminary verified report. Lymphocytes Absolute 1.44 1.00 - 5.00 K/mcL LAB HEMETOLOGY METHOD 10/16/2024 7:27 AM [facility] Comment:This is an appended report. These results have been appended to a previously preliminary verified report. Monocytes Absolute 0.63 0.20 - 1.00 K/mcL LAB HEMETOLOGY METHOD 10/16/2024 7:[address] [facility] Comment:This is an appended report. These results have been appended to a previously preliminary verified report. Eosinophils Absolute 0.01 0.00 - 0.50 K/mcL LAB HEMETOLOGY METHOD 10/16/2024 7:[address] [facility] Comment:This is an appended report. These results have been appended to a previously preliminary verified report. Basophils Absolute 0.01 0.00 - 0.20 K/mcL LAB HEMETOLOGY METHOD 10/16/2024 7:[address] [facility] Comment:This is an appended report. These results have been appended to a previously preliminary verified report. Immature Granulocytes Absolute 0.01 0.00 - 0.03 K/[facility] 10/16/2024 7:[address] [facility] Comment:This is an appended report. These results have been appended to a previously preliminary verified report. Blood Venous blood specimen / Unknown Venipuncture / Unknown 10/16/2024 5:42 AM EDT 10/16/2024 6:35 AM EDT us Amanda Matthew MD LAB BLOOD ORDERABLES Final Resu lt Performing Organization Address City/[facility]/ZIP Co de Phone Number [facility] [address] [place] [address], * Triiodothyronine free (10/16/2024 5:42 AM EDT) T3, Free 284 230 - 420 pcg/dL LAB CHEMISTRY METHOD 10/16/2024 12:[address] [facility] Blood Venous blood specimen / Unknown Venipuncture / Unknown 10/16/2024 5:42 AM EDT 10/16/2024 6:35 AM EDT us Amanda Matthew MD LAB BLOOD ORDERABLES Final Resu lt [facility] [address] [place] [address], [place] [phone] * Phosphorus (10/16/2024 5:42 AM EDT) Only the most recent of2 resultswithin the time period is included. Phosphorus 2.9 2.5 - 4.5 mg/dL LAB CHEMISTRY METHOD 10/16/2024 7:[address] [facility] Blood Venous blood specimen / Unknown Venipuncture / Unknown 10/16/2024 5:42 AM EDT 10/16/2024 6:35 AM EDT us Amanda Matthew MD LAB BLOOD ORDERABLES Final Resu lt Performing Organization Address [facility] de Phone Number [facility] [address] [place] [address], * Magnesium (10/16/2024 5:42 AM EDT) Only the most recent of3 resultswithin the time period is included. Magnesium 2.0 1.9 - 2.6 mg/dL LAB CHEMISTRY METHOD 10/16/2024 7:[address] [facility] Blood Venous blood specimen / Unknown Venipuncture / Unknown 10/16/2024 5:42 AM EDT 10/16/2024 6:35 AM EDT us Amanda Matthew MD LAB BLOOD ORDERABLES Final Resu lt Performing Organization Address [facility]/ZIP Co de Phone Number [facility] [address] [place] [address], [place] [phone] * (ABNORMAL) Comprehensive metabolic panel (10/16/2024 5:42 AM EDT) Sodium 133 133 - 145 mmol/L LAB CHEMISTRY METHOD 10/16/2024 7:[address] [facility] Potassium 4.0 3.5 - 5.5 mmol/L LAB CHEMISTRY METHOD 10/16/2024 7:23 AM [facility] Chloride 97 96 - 110 mmol/L LAB CHEMISTRY METHOD 10/16/2024 7:23 AM [facility] CO2 30 21 - 32 mmol/L LAB CHEMISTRY METHOD 10/16/2024 7:23 AM [facility] Anion Gap 6 3 - 11 LAB CHEMISTRY METHOD 10/16/2024 7:23 AM [facility] Glucose 81 70 - 100 mg/dL LAB CHEMISTRY METHOD 10/16/2024 7:23 AM [facility] BUN 17 5 - 25 mg/dL LAB CHEMISTRY METHOD 10/16/2024 7:23 AM [facility] Creatinine 0.41(L) 0.50 - 1.10 mg/dL LAB CHEMISTRY METHOD 10/16/2024 7:23 AM [facility] eGFR 94 >=60 mL/min/1. 73m2 LAB CHEMISTRY METHOD 10/16/2024 7:23 AM [facility] Comment:Calculation based on the Chronic Kidney Disease Epidemiology Collaboration (CKD-EPI) equation refit without adjustment for race. BUN/Creatinine Ratio 41.5 LAB CHEMISTRY METHOD 10/16/2024 7:23 AM [facility] Calcium 8.8 8.5 - 10.5 mg/dL LAB CHEMISTRY METHOD 10/16/2024 7:23 AM [facility] AST (SGOT) 24 10 - 42 unit/L LAB CHEMISTRY METHOD 10/16/2024 7:23 AM [facility] ALT (SGPT) 25 10 - 60 unit/L LAB CHEMISTRY METHOD 10/16/2024 7:23 AM [facility] Alkaline Phosphatase 77 42 - 121 unit/L LAB CHEMISTRY METHOD 10/16/2024 7:23 AM [facility] Total Protein 6.4 6.0 - 8.0 g/dL LAB CHEMISTRY METHOD 10/16/2024 7:[address] [facility] Albumin 3.3 3.2 - 5.0 g/dL LAB CHEMISTRY METHOD 10/16/2024 7:23 AM [facility] Total Bilirubin 0.8 0.0 - 1.4 mg/dL LAB CHEMISTRY METHOD 10/16/2024 7:[address] [facility] Blood Venous blood specimen / Unknown Venipuncture / Unknown 10/16/2024 5:42 AM EDT 10/16/2024 6:35 AM EDT Amanda Matthew MD LAB BLOOD ORDERABLES Final Resu lt [facility] [address] [place] [address], * (ABNORMAL) Complete blood count (10/15/2024 6:39 AM EDT) WBC 6.6 4.8 - 10.8 K/mcL LAB HEMETOLOGY METHOD 10/15/2024 7:49 AM [facility] RBC 4.60 3.80 - 4.80 M/mcL LAB HEMETOLOGY METHOD 10/15/2024 7:49 AM [facility] Hemoglobin 13.5 11.5 - 16.0 g/dL LAB HEMETOLOGY METHOD 10/15/2024 7:49 AM [facility] Hematocrit 44.2 35.0 - 47.0 % LAB HEMETOLOGY METHOD 10/15/2024 7:49 AM [facility] MCV 95.5 79.0 - 98.0 FL LAB HEMETOLOGY METHOD 10/15/2024 7:49 AM [facility] MCH 29.2 27.0 - 32.0 pcg LAB HEMETOLOGY METHOD 10/15/2024 7:[address] [facility] MCHC 30.5(L) 32.0 - 37.0 g/dL LAB HEMETOLOGY METHOD 10/15/2024 7:[address] [facility] RDW 14.4 11.0 - 15.0 % LAB HEMETOLOGY METHOD 10/15/2024 7:[address] [facility] Platelets 217 130 - 400 K/mcL LAB HEMETOLOGY METHOD 10/15/2024 7:[address] [facility] MPV 10.8 7.0 - 11.0 FL LAB HEMETOLOGY METHOD 10/15/2024 7:[address] [facility] NRBC 0.0 <1.0 % LAB HEMETOLOGY METHOD 10/15/2024 7:[address] [facility] NRBC Absolute 0.00 <0.10 K/mcL LAB HEMETOLOGY METHOD 10/15/2024 7:[address] [facility] Blood Venous blood specimen / Unknown Venipuncture / Unknown 10/15/2024 6:39 AM EDT 10/15/2024 7:36 AM EDT us Zuleika Mayer MD LAB BLOOD ORDERABLES Final Res ult [facility] [address] [place] [address], * (ABNORMAL) C-reactive protein (10/15/2024 6:39 AM EDT) C-Reactive Protein 1.88(H) <=0.50 mg/dL LAB CHEMISTRY METHOD 10/15/2024 8:[address] [facility] Blood Venous blood specimen / Unknown Venipuncture / Unknown 10/15/2024 6:39 AM EDT 10/15/2024 7:35 AM EDT us Amanda Matthew MD LAB BLOOD ORDERABLES Final Resu lt [facility] [address] [place] [address], [place] [phone] * Vitamin B12 (10/15/2024 6:39 AM EDT) [facility] Vitamin B-12 476 250 - 900 pcg/mL LAB CHEMISTRY METHOD 10/15/2024 9:[address] [facility] Blood Venous blood specimen / Unknown Venipuncture / Unknown 10/15/2024 6:39 AM EDT 10/15/2024 7:35 AM EDT us Amanda Matthew MD LAB BLOOD ORDERABLES Final Resu lt Performing Organization Address City/[facility]/ZIP Co de Phone Number [facility] [address] [place] [address], [place] [phone] * (ABNORMAL) Basic metabolic panel (10/15/2024 6:39 AM EDT) Only the most recent of2 resultswithin the time period is included. [facility] Sodium 134 133 - 145 mmol/L LAB CHEMISTRY METHOD 10/15/2024 8:[address] [facility] Potassium 4.2 3.5 - 5.5 mmol/L LAB CHEMISTRY METHOD 10/15/2024 8:[address] [facility] Chloride 98 96 - 110 mmol/L LAB CHEMISTRY METHOD 10/15/2024 8:[address] [facility] CO2 30 21 - 32 mmol/L LAB CHEMISTRY METHOD 10/15/2024 8:[address] [facility] Anion Gap 6 3 - 11 LAB CHEMISTRY METHOD 10/15/2024 8:[address] [facility] Glucose 114(H) 70 - 100 mg/dL LAB CHEMISTRY METHOD 10/15/2024 8:[address] [facility] BUN 15 5 - 25 mg/dL LAB CHEMISTRY METHOD 10/15/2024 8:[address] [facility] Creatinine 0.52 0.50 - 1.10 mg/dL LAB CHEMISTRY METHOD 10/15/2024 8:[address] [facility] eGFR 89 >=60 mL/min/1. 73m2 LAB CHEMISTRY METHOD 10/15/2024 8:[address] [facility] Comment:Calculation based on the Chronic Kidney Disease Epidemiology Collaboration (CKD-EPI) equation refit without adjustment for race. BUN/Creatinine Ratio 28.8 LAB CHEMISTRY METHOD 10/15/2024 8:[address] [facility] Calcium 9.2 8.5 - 10.5 mg/dL LAB CHEMISTRY METHOD 10/15/2024 8:[address] [facility] Blood Venous blood specimen / Unknown Venipuncture / Unknown 10/15/2024 6:39 AM EDT 10/15/2024 7:35 AM EDT us Zuleika Mayer MD LAB BLOOD ORDERABLES Final Res ult [facility] [address] [place] [address], * ECG 12 lead (10/14/2024 5:37 PM EDT) Only the most recent of2 resultswithin the time period is included. Ventricular Rate ECG 94 BPM GEMUSE Atrial Rate 94 BPM GEMUSE P-R Interval 166 ms GEMUSE QRS Duration 142 ms GEMUSE Q-T Interval 412 ms GEMUSE QTc 515 ms GEMUSE P Wave [place] 63 degrees GEMUSE R [place] 118 degrees GEMUSE T [place] 24 degrees GEMUSE ECG Interpretation Normal sinus rhythm with sinus arrhythmia Right bundle branch block Abnormal ECG When compared with ECG of 14-OCT-2024 10:40, No significant change was found Confirmed by LIDA CASTILLO ([id number]) on 10/14/2024 6:21:57 PM GEMUSE 10/14/2024 5:37 PM EDT 10/14/2024 6:21 PM EDT us Krystenafshin Mendiolaard [employer]ER ECG ORDERABLES Final Result GEMUSE * CT Angio Chest wo and/or w Contrast (10/14/2024 2:03 PM EDT) Anatomical Region Laterality Modality Body Computed Tomogra phy 10/14/2024 2:19 PM EDT Impressions 10/14/2024 2:37 PM EDT No acute pulmonary embolism. Subtle opacities throughout compatible with infectious or inflammatory process. -------- FINAL REPORT -------- Dictated By: Kristina Cerna Dictated Date: 10/14/2024 14:19 ET Assigned Physician: Kristina Cerna Reviewed and Electronically Signed By: Kristina Cerna Signed Date: 10/14/2024 14:37 ET Workstation ID: [id number] Transcribed By: Self Edit Transcribed Date: 10/14/2024 14:23 ET Narrative 10/14/2024 2:37 PM EDT PROCEDURE: CT ANGIO CHEST INDICATION: PE suspected, high prob dyspnea, tachypnea COMPARISON: None. TECHNIQUE: CT pulmonary angiogram performed following uneventful IV administration of ISOVUE contrast material with bolus timing technique from the thoracic inlet through the lung bases. 3-D multiplanar reformations were obtained by the technologist on an independent workstation. [employer] VCT dose reduction utilizing iterative reconstruction. Total exam DLP 246 (mGy-cm) FINDINGS: No acute pulmonary embolism. Enlarged pulmonary trunk suggestive of elevated pulmonary pressures. Postoperative mediastinum with aortic valve repair. Extensive coronary artery and mitral annular calcifications. Cardiomegaly. No significant pericardial effusion. The thoracic aorta is normal in caliber. Left thyroid nodule. No adenopathy. Opacity in the posterior left upper lobe and superior left lower lobe likely infectious inflammatory. Similar opacities in the right middle lobe. There are no pleural effusions. The visualized portion of the upper abdomen demonstrates no acute findings however technique was not optimized for evaluation for more subtle lesions. Chronic thoracic deformities. Median sternotomy. Remote rib deformities. Procedure Note Kristina Cerna MD - 10/14/2024 PROCEDURE: CT ANGIO CHEST INDICATION: PE suspected, high prob dyspnea, tachypnea COMPARISON: None. TECHNIQUE: CT pulmonary angiogram performed following uneventful IVadministration of ISOVUE contrast material with bolus timing techniquefrom the thoracic inlet through the lung bases. 3-D multiplanar reformations were obtained by the technologist on anindependent workstation. [employer] VCT dose reduction utilizing iterative reconstruction. Total exam DLP 246 (mGy-cm) FINDINGS: No acute pulmonary embolism. Enlarged pulmonary trunk suggestive ofelevated pulmonary pressures. Postoperative mediastinum with aortic valve repair. Extensive coronaryartery and mitral annular calcifications. Cardiomegaly. No significantpericardial effusion. The thoracic aorta is normal in caliber. Left thyroid nodule. No adenopathy. Opacity in the posterior left upper lobe and superior left lower lobelikely infectious inflammatory. Similar opacities in the right middlelobe. There are no pleural effusions. The visualized portion of the upper abdomen demonstrates no acute findingshowever technique was not optimized for evaluation for more subtlelesions. Chronic thoracic deformities. Median sternotomy. Remote ribdeformities. IMPRESSION: No acute pulmonary embolism. Subtle opacities throughout compatible withinfectious or inflammatory process. -------- FINAL REPORT -------- Dictated By: Kristina Cerna Dictated Date: 10/14/2024 14:19 ET Assigned Physician: Kristina Cerna Reviewed and Electronically Signed By: Kristina Cerna Signed Date: 10/14/2024 14:37 ET Workstation ID: [id number] Transcribed By: Self Edit Transcribed Date: 10/14/2024 14:23 ET [facility] IM CT PROCEDURES Final Re sult * (ABNORMAL) Respiratory virus panel molecular study (10/14/2024 12:52 PM EDT) Adenovirus Detection by PCR Not Detected Not Detected LAB MICROBIOLOGY METHOD 10/14/2024 2:[address] [facility] Influenza A PCR Not Detected Not Detected LAB MICROBIOLOGY METHOD 10/14/2024 2:[address] [facility] Influenza B PCR Not Detected Not Detected LAB MICROBIOLOGY METHOD 10/14/2024 2:[address] [facility] Coronavirus 229E Not Detected Not Detected LAB MICROBIOLOGY METHOD 10/14/2024 2:[address] [facility] Coronavirus HKU1 Not Detected Not Detected LAB MICROBIOLOGY METHOD 10/14/2024 2:[address] [facility] Coronavirus OC43 Not Detected Not Detected LAB MICROBIOLOGY METHOD 10/14/2024 2:[address] [facility] Coronavirus NL63 Not Detected Not Detected LAB MICROBIOLOGY METHOD 10/14/2024 2:[address] [facility] Parainfluenza Virus 1 Not Detected Not Detected LAB MICROBIOLOGY METHOD 10/14/2024 2:[address] [facility] Parainfluenza Virus 2 Not Detected Not Detected LAB MICROBIOLOGY METHOD 10/14/2024 2:[address] [facility] Parainfluenza Virus 3 Not Detected Not Detected LAB MICROBIOLOGY METHOD 10/14/2024 2:[address] [facility] Parainfluenza Virus 4 Not Detected Not Detected LAB MICROBIOLOGY METHOD 10/14/2024 2:[address] [facility] RSV PCR Not Detected Not Detected LAB MICROBIOLOGY METHOD 10/14/2024 2:[address] [facility] Human Metapneumovirus A and B Detected(A ) Not Detected LAB MICROBIOLOGY METHOD 10/14/2024 2:[address] [facility] Rhinovirus/Entero virus Not Detected Not Detected LAB MICROBIOLOGY METHOD 10/14/2024 2:[address] [facility] Bordetella pertussis Not Detected Not Detected LAB MICROBIOLOGY METHOD 10/14/2024 2:[address] [facility] Bordetella parapertussis Not Detected Not Detected LAB MICROBIOLOGY METHOD 10/14/2024 2:[address] [facility] Mycoplasma pneumo by PCR Not Detected Not Detected LAB MICROBIOLOGY METHOD 10/14/2024 2:[address] [facility] Chlamydia pneumoniae Not Detected Not Detected LAB MICROBIOLOGY METHOD 10/14/2024 2:[address] [facility] SARS COV-2 Not Detected Not Detected LAB MICROBIOLOGY METHOD 10/14/2024 2:[address] [facility] Swab Both anterior nares / Unknown Non-blood Collection / Unknown 10/14/2024 12:52 PM EDT 10/14/2024 1:[address] [facility] - 10/14/2024 2:30 PM EDT Testing was performed using the [employer] Respiratory Pathogen PCR Assay. All results must be correlated with the clinical findings. Results should not be used as the sole basis for diagnosis. False Negative results may occur from the presence of sequence variants in the region targeted by the assay or the presence of inhibitors. Results may be affected by concurrent antiviral/antimicrobial therapy or levels of organisms that are below the limit of detection. [facility]ely [facility] LAB MICROBIOLOGY - GENERAL ORDERABLES Final Result [facility] [address] [place] [address], * XR Chest 2 Views (10/14/2024 12:42 PM EDT) Anatomical Region Laterality Modality Body Radiographic Maryuri ging 10/14/2024 12:5 0 PM EDT Impressions 10/14/2024 12:51 PM EDT FINDINGS/IMPRESSION: Postoperative mediastinum with stable cardiomediastinal contours. 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 Mild pulmonary vascular congestion. No consolidation or effusion. Osteopenia and degenerative changes with chronic right shoulder rotator cuff tear. -------- FINAL REPORT -------- Dictated By: Kristina Cerna Dictated Date: 10/14/2024 12:50 ET Assigned Physician: Kristina Cenra Reviewed and Electronically Signed By: Kristina Cerna Signed Date: 10/14/2024 12:51 ET Workstation ID: [id number] Transcribed By: Self Edit Transcribed Date: 10/14/2024 12:50 ET Narrative 10/14/2024 12:51 PM EDT XR CHEST 2 VIEWS INDICATION: dyspnea TECHNIQUE: XR CHEST 2 VIEWS COMPARISON: No priors available. Procedure Note Kristina Cerna MD - 10/14/2024 XR CHEST 2 VIEWS INDICATION: dyspnea TECHNIQUE: XR CHEST 2 VIEWS COMPARISON: No priors available. IMPRESSION: FINDINGS/IMPRESSION: Postoperative mediastinum with stablecardiomediastinal contours. Aortic valve replacement and prominent mitralvalvular calcifications. Mild pulmonary vascular congestion. Noconsolidation or effusion. Osteopenia and degenerative changes withchronic right shoulder rotator cuff tear. -------- FINAL REPORT -------- Dictated By: Kristina Cerna Dictated Date: 10/14/2024 12:50 ET Assigned Physician: Kristina Cerna Reviewed and Electronically Signed By: Kristina Cerna Signed Date: 10/14/2024 12:51 ET Workstation ID: [id number] Transcribed By: Self Edit Transcribed Date: 10/14/2024 12:50 ET us Zuleika Mayer MD IMG XR PROCEDURES Final Result * (ABNORMAL) B-type natriuretic peptide (10/14/2024 11:14 AM EDT) BNP 365(H) <=100 pcg/mL LAB CHEMISTRY METHOD 10/14/2024 2:03 PM EDT [facility] Blood Venous blood specimen / Unknown Venipuncture / Unknown 10/14/2024 11:14 AM EDT 10/14/2024 12:30 PM EDT us Keely BOLAND LAB BLOOD ORDERABLES Final Result [facility] [address] [place] [address], from Last 3 Months Additional Health Concerns Infection Onset Date Last Indicated Human Metapneumovirus 10/14/2024 10/14/2024 Insurance * Guarantor: Coleen Mosher Account Type Relation to Patient Date of Phone Billing Address Personal/Family Self [address] [place] [address] [employer] Advance Directives Documents on File Type Date Recorded Patient Lapper Expl anation Health Care Decision (hx) 07/07/2021 Mike GIBSON DIRECTIVE * No CPR/Do Not Intubate (Latest Code Status on File) Date Activated Date Inactivated Comments 10/15/2024 6:44 PM 10/16/2024 7:[address] at[facility] was ascertained in the following way: Code status discussion: discussion with healthcare veterans employment representative To update the patient's code status, place a code status order. Do not modify or discontinue any currently active code status orders. * Full Code - Default Date Activated Date Inactivated Comments 10/14/2024 2:52 PM 10/15/2024 6:44 PM This is orde r is used when code status has not been discussed with the patient, or code status is otherwise unknown/unconfirmed To update the patient's code status, place a code status order. Do not modify or discontinue any currently active code status orders. Healthcare Agents on File Name Relationship Healthcare Agent Relationshi p Communication Mike Sawyer Health Care Agent Care Teams Deck Supervisor Relationship Specialty Start Date End Date Sixto Bustamante MD [address] [facility] [address] [place] [address] PCP - General Internal Medicine 04/09/12
== END 2024-12-09 16:23 | disposition home or self-care (01) ==
LOC: HO.HSM 14:47
PROVIDERS: PCP Internal Medicine; Visit Provider Psychiatry & Neurology Neurology
DX: F03.B0 Unspecified dementia, moderate, without behavioral disturbance, psychotic disturbance, mood disturbance, and anxiety (principal)
CPT/HCPCS: 99204

== ENCOUNTER 2024-12-09 16:09 | Inpatient (IN) | payer MEDICARE, SELFPAY ==
[2024-12-09 16:21] VITALS: BP 178/82; PULSE 92; RESP 16; TEMP 37.1; O2SAT 94; BMI 29.7
--- NOTE | 2024-12-09 16:33 | ECG_ITS ---
Test Reason : check qtc Blood Pressure : */* mmHG Vent. Rate : 80 BPM Atrial Rate : 80 BPM P-R Int : 172 ms QRS Dur : 138 ms QT Int : 416 ms P-R-T Axes : 57 97 13 degrees QTcB Int : 479 ms Normal sinus rhythm with sinus arrhythmia Right bundle branch block Abnormal ECG No previous ECGs available Referred By: Carol Alicea Electronically Signed By: GAYE MOSHER
--- NOTE | 2024-12-09 17:13 | ED_ITS ---
HPI - Psych General Chief Complaint: Psychiatric Symptoms Stated Complaint: SI Time Seen by Provider: 12/09/24 16:16 Source: patient and RN notes reviewed Mode of arrival: ambulatory Limitations: no limitations History of Present Illness ED Provider: Ashlyn Alberts PA-C HPI Narrative: This is a 89-year-old female, with a past medical history of anxiety, depression, cognitive impairment with behavioral disturbances, AFib on Coumadin, aortic stenosis status post TAVR, hypertension, coronary artery disease, obesity, and recurrent urinary tract infections who presents emergency department from Dr. Parham's office after being referred for psych eval. Per her daughter per Dr. Parham's note, patient had a change in her mental status in May of 2021, when she was noted to have paranoia and delusions. She was taken to [facility] where she was prescribed olanzapine. Per the note, patient took olanzapine and after several weeks her symptoms did get better however per daughter today states that patient stopped taking this medication. One year later she was taken to [facility] with similar symptoms. She also had another psychotic event in January of 2024, seen at [facility]. Given risperidone and Haldol, which she did not take. She does drink alcohol, states that she will have a glass of wine intermittently, denies daily alcohol use. No drug use. Former smoker. Daughter alludes to patient having some delusions around her home, stating that there have been objects that have been appeared in her home which daughters are stating that patient has been accusatory of her placing. Patient denies any SI or HI. Denies any auditory or visual hallucinations. Onset (ago): unknown Duration: intermittent History of same: Yes Relieving factors: medication Exacerbating factors: none Associated psychiatric symptoms: delusions Associated symptoms: denies other symptoms Treatments prior to arrival: none Related Data Home Medications ?Medication ?Instructions ?Recorded ?Confirmed acetaminophen 325 mg tablet 325 mg PO QID PRN Mild Uvaldo n (Scale 12/07/24 12/09/24 Score 1-4) amlodipine 5 mg tablet 5 mg PO DAILY 12/07/2412/09 furosemide 40 mg tablet 40 mg PO DAILY@0730 12/07/24 12/09/24 losartan 50 mg tablet 50 mg PO DAILY 12/07/2411/24 potassium chloride 20 mEq 20 meq PO BID 12/07/2412/09 tablet,extended release(part/cryst) ropinirole 4 mg tablet,extended 4 mg PO DAILY@1700 12/09/24 release 24 hr sotalol 160 mg tablet 160 mg PO BID 12/07/2412/09 trazodone 50 mg tablet 50 mg PO BEDTIME 12/07/24 warfarin 2 mg tablet See Rx Instructions .Route . COMPLEX 12/07/24 12/09/24 sertraline 50 mg tablet 75 mg PO DAILY 12/09/2411/24 Allergies Allergy/AdvReac Type Severity Reaction Status Date / Time naproxen Allergy Anaphylaxis Verified 12/09/24 16:28 Review of Systems 2 Review of Systems: Yes all other systems are reviewed and are negative Constitutional: Constitutional: Reports as per [facility] Past Medical History Medical History (Updated 12/10/24 @ 13:46 by Pamela Cantu DO) Senile osteoporosis Right shoulder pain RLS (restless legs syndrome) Rectocele Insomnia HLD (hyperlipidemia) Hypertension FH: total knee replacement Carotid stenosis Atrial fibrillation Aortic stenosis Surgical History (Updated 12/07/24 @ 10:45 by Og Blackburn MA) Hx of total knee arthroplasty H/O eye surgery History of carpal tunnel release H/O aortic valve replacement H/O cystocele repair Social History Social History Patient Tobacco Use Status: Never used Tobacco Smoked in Last 30 Days: No Use of substances other than those prescribed or required for medical reasons: No Advance Directives: No Advance Directives Information Provided: No Do you have a plan to hurt others: No Plan Nutrition Risks: No Nutritional Risk Physical Exam 2 Vital Signs: Vital Signs: Last Vital Signs Temp 36.5 F L 12/10/24 14:31 Pulse 89 12/10/24 14:31 Resp 18 12/10/24 14:31 BP 131/61 12/10/24 14:31 Pulse Ox 94 12/10/24 14:31 O2 Del Method Room Air 12/10/24 14:31 BMI result Body Mass Index 29.7 Const: General: cooperative, comfortable and no acute distress O rientation/consciousness: patient oriented x3 Limitations: no limitations HEENT: Head: Yes normal to inspection, Yes normocephalic and Yes atraumatic Ears: hearing grossly normal bilaterally General nose exam: Normal external nose present Face and sinus: Yes normal facial exam Mouth: Normal oral and palatal mucosa present, oropharynx normal and moist mucous membranes Throat: Yes posterior oropharynx normal Eyes: General: appearance normal, both eyes and all related structures E yelids: Yes eyelids normal Conjunctivae: conjunctivae normal Sclerae: s clerae normal Pupils: Equal, round and reactive pupils present EOM: EOMs intact bilaterally Neck: Neck: Yes normal visual inspection, Yes full ROM and Yes no lymphadenopathy Lymphatic: no lymphadenopathy noted Chest: Chest palpation & inspection: normal inspection of the chest Resp: Effort & Inspection: normal respiratory effort and able to speak in complete sentences Auscultation: clear to auscultation bilaterally, no crackles, no rales, no rhonchi and no wheezes Cardio: Rate: regular rate Rhythm: regular rhythm Heart sounds: S1 normal heart sound present and S2 normal heart sound present GI: Inspection: Yes normal to inspection Skin: General skin exam: no rashes or lesions noted Trauma: no lacerations or abrasions Wounds: no wounds Neuro: General: patient oriented x3 and moves all extremities Cranial nerves: Yes Equal, round and reactive pupils present Extrem: General: Yes normal to inspection Right upper extremity: normal to inspection Left upper extremity: normal to inspection Right lower extremity: normal to inspection Left lower extremity: normal to inspection Psych: Appearance: grossly normal Speech and movement: Normal speech and movement present, Psychomotor agitation in speech present and Restless speech present Affect: Anxious affect present, Hostile affect present and Irritable affect present Attitude: Guarded attititude/behavior present and Avoids eye contact (attititude/behavior) Thought process: Circumstantial thought process present and Perseverating thought process present Thought content: Paranoid delusions present Insight: Limited insight present (Psych) Judgement: L imited judgement present (Psych) Course Reevaluation(s) Reevaluation #1: 7:07 PM 12/09/2024 (Kehinde BOLAND): Patient is signed out to this provider at shift change, in summary patient is an 89-year-old female presenting to the ED for [facility] psychiatric evaluation. The patient has had increased paranoia and noncompliance with medications, currently lives alone at home. The patient was signed out pending crisis consultation, CMP, and INR. At this time the patient's CMP is normal, INR is still pending. This provider was just informed by the nurse that the patient does not currently meet inpatient criteria however there are concerns for safety with the patient living alone at home, will be held overnight for a consultation with a psychiatrist tomorrow morning. Med reconciliation has been completed, INR will be reviewed. Reevaluation #2: Time: Date: 12/10/24 Provider: Pamela Cantu, DO Patient in physician observation for psychiatric evaluation.? No acute events reported overnight. No current complaints. VS stable.? Patient is pending psychiatry consult, will repeat INR tomorrow only 1.5 today.. Will continue to monitor. Reevaluation #3: phsycian observation ended 146pm VINCE 12/10/24 146pm accepted to inpatient Medications Administered Generic Name Dose Route Start Last Admin Trade Name Freq PRN Reason Stop Dose Admin Amlodipine Besylate 5 mg 12/10/24 09:00 12/10/24 07:39 Amlodipine Besylate 5 Mg Tablet PO 5 mg DAILY SUNDEEP Administration Protocol Furosemide 40 mg 12/10/24 07:30 12/10/24 07:38 Furosemide 40 Mg Tablet PO 40 mg DAILY@0730 SUNDEEP Administration Protocol Losartan Potassium 50 mg 12/10/24 09:00 12/10/24 07:38 Losartan Potassium 50 Mg Tablet PO 50 mg DAILY SUNDEEP Administration Protocol Potassium Chloride 20 meq 12/09/24 21:00 12/10/24 07:39 Potassium Chloride Er 20 Meq Tab.Er.Prt PO 20 meq BID SUNDEEP Administration Sertraline HCl 75 mg 12/10/24 09:00 12/10/24 07:39 Sertraline Hcl 25 Mg Tablet PO 75 mg DAILY SUNDEEP Administration Sotalol HCl 160 mg 12/09/24 21:00 12/10/24 09:11 Sotalol Hcl 80 Mg Tablet PO 160 mg BID SUNDEEP Administration Trazodone HCl 50 mg 12/09/24 21:00 12/09/24 22:13 Trazodone Hcl 50 Mg Tablet PO 50 mg BEDTIME SUNDEEP Administration Discontinued Medications Generic Name Dose Route Start Last Admin Trade Name Freq PRN Reason Stop Dose Admin Ropinirole HCl 2 mg 12/09/24 19:15 12/09/24 19:57 Ropinirole Hcl 2 Mg Tablet PO 12/09/24 19:16 2 mg ONCE ONE Administration Warfarin Sodium 6 mg 12/09/24 19:15 12/09/24 19:58 Warfarin Sodium 6 Mg Tablet PO 12/09/24 19:16 6 mg ONCE ONE Administration Medical Decision Making Medical Decision Making [facility] Narrative: This is a 89-year-old female, with a past medical history of anxiety, depression, cognitive impairment with behavioral disturbances, AFib on Coumadin, aortic stenosis status post TAVR, hypertension, coronary artery disease, obesity, and recurrent urinary tract infections who presents emergency department from Dr. Parham's office after being referred for psych eval. On arrival, patient hypertensive at 178/82, all other vital signs within normal limits. Patient has no SI or HI. Patient not forthcoming as to why she is here however daughter is alluding to paranoia. She does have history of the symptoms, questionable compliance with home medications. Dr. Parham assess patient and thought that [facility] psych would be the best type of evaluation in which she would need to be seen. Plan: Labs, UA, care team, psych consult >>Sign out given to my colleague, Zeus Hines PA-C pending these results. Differential Diagnosis Differential Diagnoses: The differential diagnosis associated with the presentation includes Dementia, paranoia, psychosis, anxiety, depression Admission/Observation Consideration of admission/observation: Escalation of care including admission/observation considered Lab Data 12/09/24 18:04 12/09/24 18:04 Labs: Lab Results 12/09/24 12/09/24 12/09/24 Range/Units 17:47 17:48 18:04 WBC 7.4 (4.8-10.8) X10*3/uL RBC 4.38 (4.20-5.50) X10*6/uL Hgb 13.4 (12.0-16.0) g/dl Hct 39.3 (37.0-47.0) % MCV 89.7 (80.0-98.0) fL MCH 30.6 (27.0-33.0) pg MCHC 34.1 (31.0-35.0) g/dl RDW 14.3 (11.0-16.0) % Plt Count 268 (160-400) X10*3/uL MPV 9.8 (9.4-12.3) fL Immature Gran % (Auto) 0.4 (0.0-0.4) % Neut % (Auto) 73.1 H (45-73) % Lymph % (Auto) 16.5 L (20-40) % [place]aufman % (Auto) 8.7 (2-11) % Eos % (Auto) 0.9 (0-4) % Baso % (Auto) 0.4 (0-2) % Lymph # (Auto) 1.2 (1.2-4.9) X10*3/uL [place]aufman # (Auto) 0.7 (0.1-1.2) X10*3/uL Eos # (Auto) 0.1 (0.0-0.4) X10*3/uL Baso # (Auto) 0.0 (0.0-0.2) X10*3/uL Abs Immat Gran (auto) 0.03 (0.00-0.03) X10*3/uL Absolute Neuts (auto) 5.4 (2.0-8.3) x10*3/uL Absolute Nucleated RBC 0.000 (0.0-0.012) X10*3/uL Nucleated RBC % (auto) 0.0 (0.0-0.2) /100WBC PT 16.1 H (10.9-12.4) SEC INR 1.4 H (0.9-1.1) Sodium 140 (135-145) mmol/L Potassium 4.5 (3.3-5.1) mmol/L Chloride 103 (96-108) mmol/L Carbon Dioxide 26 (22-29) mmol/L Anion Gap 16 (12-20) BUN 14 (9-16) mg/dL Creatinine 0.56 (0.5-1.4) mg/dL Estim Creat Clear Calc 59.0 Estimated GFR > 60 Random Glucose 106 (60-115) mg/dL Calcium 9.6 (8.4-10.2) mg/dL Magnesium 2.1 (1.6-2.6) mg/dL Total Bilirubin 1.0 (0.0-1.0) mg/dL AST 30 (5-31) U/L ALT 16 (0-31) U/L Alkaline Phosphatase 79 (39-117) U/L Total Protein 7.5 (6.5-8.0) g/dL Albumin 4.4 (3.5-5.0) g/dL Lipase 25 (8-78) U/L Urine Color Yellow Urine Appearance Clear Urine pH 5.5 (5.0-9.0) Ur Specific [place] 1.025 (1.005-1.025) Urine Protein Negative (Neg-Trace) mg/dL Urine Glucose (UA) Negative (Negative) mg/dL Urine Ketones Trace (Negative) mg/dL Urine Blood Negative (Negative) Urine Nitrite Negative (Negative) Ur Leukocyte Esterase Trace H (Negative) Urine RBC 0-2 (0-2) /HPF Urine WBC 0-5 (0-5) /HPF Ur Squamous Epith Cells 3-5 (0-2) /HPF Calcium Oxalate Crystal Present Urine Bacteria None Seen (None Seen) Hyaline Casts 0-2 (0-2) /LPF Salicylates < 5.0 L (15-30) mg/dL Urine Opiates Screen Not Detected (Not Detect) Ur Buprenorphine Scrn Not Detected (Not Detect) ng/mL Ur Oxycodone Screen Not Detected (Not Detect) ng/mL Urine Methadone Screen Not Detected (Not Detect) ng/mL Urine Fentanyl Screen Not Detected (Not Detect) Acetaminophen < 3 (<30) mcg/mL Ur Barbiturates Screen Not Detected (Not Detect) Ur Phencyclidine Scrn Not Detected (Not Detect) Ur Amphetamines Screen Not Detected (Not Detect) U Benzodiazepines Scrn Not Detected (Not Detect) Urine Cocaine Screen Not Detected (Not Detect) U Marijuana (THC) Screen Not Detected (Not Detect) Ethyl Alcohol < 10 mg/dL 12/10/24 Range/Units 06:12 WBC (4.8-10.8) X10*3/uL RBC (4.20-5.50) X10*6/uL Hgb (12.0-16.0) g/dl Hct (37.0-47.0) % MCV (80.0-98.0) fL MCH (27.0-33.0) pg MCHC (31.0-35.0) g/dl RDW (11.0-16.0) % Plt Count (160-400) X10*3/uL MPV (9.4-12.3) fL Immature Gran % (Auto) (0.0-0.4) % Neut % (Auto) (45-73) % Lymph % (Auto) (20-40) % Kaufman % (Auto) (2-11) % Eos % (Auto) (0-4) % Baso % (Auto) (0-2) % Lymph # (Auto) (1.2-4.9) X10*3/uL [place] # (Auto) (0.1-1.2) X10*3/uL Eos # (Auto) (0.0-0.4) X10*3/uL Baso # (Auto) (0.0-0.2) X10*3/uL Abs Immat Gran (auto) (0.00-0.03) X10*3/uL Absolute Neuts (auto) (2.0-8.3) x10*3/uL Absolute Nucleated RBC (0.0-0.012) X10*3/uL Nucleated RBC % (auto) (0.0-0.2) /100WBC PT 17.6 H (10.9-12.4) SEC INR 1.5 H (0.9-1.1) Sodium (135-145) mmol/L Potassium (3.3-5.1) mmol/L Chloride (96-108) mmol/L Carbon Dioxide (22-29) mmol/L Anion Gap (12-20) BUN (9-16) mg/dL Creatinine (0.5-1.4) mg/dL Estim Creat Clear Calc Estimated GFR Random Glucose (60-115) mg/dL Calcium (8.4-10.2) mg/dL Magnesium (1.6-2.6) mg/dL Total Bilirubin (0.0-1.0) mg/dL AST (5-31) U/L ALT (0-31) U/L Alkaline Phosphatase (39-117) U/L Total Protein (6.5-8.0) g/dL Albumin (3.5-5.0) g/dL Lipase (8-78) U/L Urine Color Urine Appearance Urine pH (5.0-9.0) Ur Specific [place] (1.005-1.025) Urine Protein (Neg-Trace) mg/dL Urine Glucose (UA) (Negative) mg/dL Urine Ketones (Negative) mg/dL Urine Blood (Negative) Urine Nitrite (Negative) Ur Leukocyte Esterase (Negative) Urine RBC (0-2) /HPF Urine WBC (0-5) /HPF Ur Squamous Epith Cells (0-2) /HPF Calcium Oxalate Crystal Urine Bacteria (None Seen) Hyaline Casts (0-2) /LPF Salicylates (15-30) mg/dL Urine Opiates Screen (Not Detect) Ur Buprenorphine Scrn (Not Detect) ng/mL Ur Oxycodone Screen (Not Detect) ng/mL Urine Methadone Screen (Not Detect) ng/mL Urine Fentanyl Screen (Not Detect) Acetaminophen (<30) mcg/mL Ur Barbiturates Screen (Not Detect) Ur Phencyclidine Scrn (Not Detect) Ur Amphetamines Screen (Not Detect) U Benzodiazepines Scrn (Not Detect) Urine Cocaine Screen (Not Detect) U Marijuana (THC) Screen (Not Detect) Ethyl Alcohol mg/dL Discharge Plan Discharge Clinical Impression: Acute paranoia Patient Disposition: Admitted As Inpatient Interventions: Admission Worksheet (ED) Last Done: 12/10/24 14:02
--- NOTE | 2024-12-09 17:18 | PC.NURSE ---
pt is 89 yo old and considered a fall risk due to age. she walks well unassisted. does not use a cane or walker. after consult with clinical coordinator she was deemed an appropriate placement in pod.
[2024-12-09 17:59] LABS: Appearance Urine Clear; Glucose Urine UA Negative (Negative); PH 5.5 (5.0-9.0); Specific Gravity - Urine 1.025 (1.005-1.025); UMIC TRIGGER UACC YES
--- NOTE | 2024-12-09 18:04 | PC.NURSE ---
med rec - completed med rec with list brought in by pt with clarifying questions that pt was able to answer. She states that she takes her Furosemide 40mg first thing in the morning separately from the rest of her daily medications. Added it to med rec with 0730 timing. She states she takes her Ropinirole 4mg in the mid afternoon but timing varies - usually around 1630. Added to med-rec with timing for 1700. She has not taken it today she took her daily medications this morning (12/09/24) Pt daughter (HCP) received a call from the warfarin clinic today with dose instructions for the next several days. They instructed pt to take: 12/09 6mg 12/10 2mg 12/11 3mg 12/12 2mg 12/13 2mg
[2024-12-09 18:07] LABS: MANUAL DIFF FLAG NO
[2024-12-09 18:08] LABS: Cannabinoid Screen Urine Not Detected (Not Detect)
[2024-12-09 18:14] LABS: Hematocrit 39.3 % (37.0-47.0); Hemoglobin 13.4 g/dl (12.0-16.0); Imm Gran Abs Auto 0.03 X10*3/uL (0.00-0.03); Imm Gran Pct Auto 0.4 % (0.0-0.4); Lymphocytes Absolute Auto 1.2 X10*3/uL (1.2-4.9); Mean Corpuscular HGB Conc 34.1 g/dl (31.0-35.0); Mean Corpuscular Hemoglobin 30.6 pg (27.0-33.0); Mean Corpuscular Volume 89.7 fL (80.0-98.0); NRBC Abs Auto 0.000 X10*3/uL (0.0-0.012); NRBC Pct Auto 0.0 /100WBC (0.0-0.2); Platelet Count 268 X10*3/uL (160-400); Red Blood Count 4.38 X10*6/uL (4.20-5.50); White Blood Count 7.4 X10*3/uL (4.8-10.8)
[2024-12-09 18:36] LABS: Acetaminophen LAB < 3 mcg/mL (<30); Alanine Aminotransferase 16 U/L (0-31); Albumin Level 4.4 g/dL (3.5-5.0); Alkaline Phosphatase 79 U/L (39-117); Anion Gap 16 (12-20); Aspartate Amino Transferase 30 U/L (5-31); Blood Urea Nitrogen 14 mg/dL (9-16); Calcium 9.6 mg/dL (8.4-10.2); Carbon Dioxide 26 mmol/L (22-29); Chloride 103 mmol/L (96-108); Creatinine Clr Calc Pharmacy 59.0; Estimated Glomerular Filt Rate > 60; Lipase 25 U/L (8-78); Magnesium 2.1 mg/dL (1.6-2.6); Potassium 4.5 mmol/L (3.3-5.1); Salicylate < 5.0 mg/dL (15-30); Sodium 140 mmol/L (135-145); Total Protein 7.5 g/dL (6.5-8.0)
--- NOTE | 2024-12-09 19:04 | HE.PHANOTE ---
WARFARIN DOSING PER CLINIC PATIENT WAS TOLD BECAUSE OF LOW INR THAT THEY SHOULD BE TAKING 6MG 12/09, 2MG 12/10, 3MG 12/11, 2MG ON 12/12 12/13. Zeus Hines okayed starting 2mg daily after clinic recommendations and will monitor INR thereafter.
--- NOTE | 2024-12-09 19:08 | PC.NURSE ---
This RN assumed pt care @ 1900. Pt had 2 visitors @ bedside. Upon entering room pt had belongings brought in by visitors in room salvage supervisor removed belongings and placed in locker Pt visibly agitated regarding the Tech removing belongings and placing it in locker. Pts visitor (daughter) requested and given pts house/car keys. Pt at nurses station stating this is ridiculous, I get a food tray but no utensils or napkins. Loaf Counter gave napkin, cup, and eating paper utensil. Pt pacing back and forth from room and nurses station with steady gait. Plan of care ongoing.
--- NOTE | 2024-12-09 19:27 | PC.NURSE ---
[facility] Spoke with Rolando at pharmacy will send med. Plan of care ongoing.
--- NOTE | 2024-12-09 20:01 | PC.NURSE ---
Med rec'd from pharmacy. Pt medicated per jul Plan of care ongoing.
[2024-12-09 21:16] LABS: INTERNATIONAL NORM RATIO 1.4 (0.9-1.1); Prothrombin Time 16.1 SEC (10.9-12.4)
--- NOTE | 2024-12-09 21:54 | PC.NURSE ---
Sotalol not in ED or Pyxis. Med requested from pharmacy Plan of care ongoing.
[2024-12-09] MEDS: Potassium Chloride ER 20 MEQ TAB.ER.PRT PO (22:13)
--- NOTE | 2024-12-09 22:16 | PC.NURSE ---
Med rec'd from pharmacy Pt medicated per jul. Pt requested and given warm blanket and TV off Plan of care ongoing.
[2024-12-10] VITALS (7 sets, daily range): BP systolic 112–195; BP diastolic 61–100; PULSE 68–89; RESP 16–18; TEMP 2.5–37.4; O2SAT 94–95; BMI 29.6
[2024-12-10 06:26] LABS: INTERNATIONAL NORM RATIO 1.5 (0.9-1.1); Prothrombin Time 17.6 SEC (10.9-12.4)
[2024-12-10] MEDS: Potassium Chloride ER 20 MEQ TAB.ER.PRT PO ×2 (07:39→20:28)
--- NOTE | 2024-12-10 10:00 | PC.NURSE ---
Pt expressing upset that her daily Furosemide was given stating I am not supposed to take that in the hospital . This RN asked for clarification, pt states I pee too much, you were not supposed to give it to me in the hospital, just at home . This RN educated pt on importance of taking daily furosemide for blood pressure control. Pt states I guess we are just not on the same page . this RN attempted to clarify with patient if this information was given to anyone else to which pt states No, you just had to know
--- NOTE | 2024-12-10 10:54 | PC.NURSE ---
Daughter at bedside
--- NOTE | 2024-12-10 15:26 | HO.PSYADMNOT ---
[facility] Date of Service: 12/10/24 Chief Complaint: Paranoid Delusions Sources of Information: patient interviewed, chart reviewed and crisis/core team assessment reviewed Additional Sources of Information: daughter, HCP. HPI Subjective Notes: Shane Warning and Section 12B Narrative: Mrs. Mosher is a 89 year-old woman who has had episodes of paranoid delusions since 2021 intermittently. She had appointment with with neurology on 12/09 completed mini mental scored 29/30. He referred to [facility] ED with plan to be assessed by psychiatry. Pertinent labs completed in the ED include CBC unremarkable. CMP without electrolyte abnormalities, BUN 14, Cr. 0.56, creatinine clearance 59. UA wnl, not suggestive of UTI. Utox is negative. MRI back in 11/20/2024 at [facility] with mild microvascular changes and mild atrophy. Pt seen with cole. Pt presents as very anxious and upset with daughter. She reports daughter is lying and she knows that someone has been going to her house. Pt is guarded to disclose this information to this va underwriter as she states I am not crazy, I should not be here. She says to this va underwriter you know what is going on, why do you do this. When asked to elaborate as to what this va underwriter is doing, pt continues to state that one day the truth will come up and someone will come forward and admit what they did. Any attempts to redirect conversation were unsuccessful as pt continues to report that she wants to go home although suspicious about who may be coming to her home and taking or changing things from her house. She denies SI/HI. She reports fair sleep. No changes in appetite. Collateral information gathered from her daughter who reports that pt has been presenting with paranoid delusions since 2021. She was admitted at [facility] and given dx of dementia with psychosis. Daughter reports that pt appeared well and PCP had wonder if in fact she had dementia. She has been on olanzapine but this was stopped. Pt was then admitted to [facility] again and started on risperidone which apparently helped but it was tapered off while she went to short term rehab. Daughter reports that paranoia has isolated her from the other adult children and her neighbors and that she is very suspicious of family and friends. Pt declined medications this morning, including warfarin as she thought it was not what they said it was. Pt reports not feeling safe here in the hospital. Medical Evaluation Reviewed: Hospitalist Rachid Pending [facility] Medical History (Updated 12/11/24 @ 12:57 by Hattie Alexander DNP) Senile osteoporosis Right shoulder pain RLS (restless legs syndrome) Rectocele Insomnia HLD (hyperlipidemia) Hypertension FH: total knee replacement Carotid stenosis Atrial fibrillation Aortic stenosis Surgical History (Updated 12/07/24 @ 10:45 by Og Blackburn MA) Hx of total knee arthroplasty H/O eye surgery History of carpal tunnel release H/O aortic valve replacement H/O cystocele repair Family History: none Social History: Pt . She has 5 daughters. currently lives alone. Substance History: remote hx of alcohol use, non recent Trauma History: none reported. Diagnostics Vital Signs (24Hr): Vital Signs - 24 hr 12/09/24 16:21 12/10/24 03:03 12/10/24 03:24 Temperature 98.8 F 98.1 F Pulse Rate 92 79 68 Respiratory Rate 16 18 18 Blood Pressure 178/82 H 195/100 H 184/84 H Pulse Oximetry 94 94 95 Oxygen Delivery Method Room Air Room Air 12/10/24 07:37 12/10/24 07:38 12/10/24 07:38 Temperature 99.4 F Pulse Rate 77 Respiratory Rate 18 Blood Pressure 177/89 H 177/89 H 177/89 H Pulse Oximetry 94 Oxygen Delivery Method Room Air 12/10/24 07:39 12/10/24 14:31 Temperature 36.5 F L Pulse Rate 89 Respiratory Rate 18 Blood Pressure 177/89 H 131/61 Pulse Oximetry 94 Oxygen Delivery Method Room Air BMI result Body Mass Index 29.6 Labs 12/09/24 18:04 12/09/24 18:04 Labs: Laboratory Results - last 48 hr 12/09/24 12/09/24 12/09/24 17:47 17:48 18:04 WBC 7.4 RBC 4.38 Hgb 13.4 Hct 39.3 MCV 89.7 MCH 30.6 MCHC 34.1 RDW 14.3 Plt Count 268 MPV 9.8 Immature Gran % (Auto) 0.4 Neut % (Auto) 73.1 H Lymph % (Auto) 16.5 L [place] % (Auto) 8.7 Eos % (Auto) 0.9 Baso % (Auto) 0.4 Lymph # (Auto) 1.2 [place] # (Auto) 0.7 Eos # (Auto) 0.1 Baso # (Auto) 0.0 Abs Immat Gran (auto) 0.03 Absolute Neuts (auto) 5.4 Absolute Nucleated RBC 0.000 Nucleated RBC % (auto) 0.0 PT 16.1 H INR 1.4 H Sodium 140 Potassium 4.5 Chloride 103 Carbon Dioxide 26 Anion Gap 16 BUN 14 Creatinine 0.56 Estim Creat Clear Calc 59.0 Estimated GFR > 60 Random Glucose 106 Calcium 9.6 Magnesium 2.1 Total Bilirubin 1.0 AST 30 ALT 16 Alkaline Phosphatase 79 Total Protein 7.5 Albumin 4.4 Lipase 25 Urine Color Yellow Urine Appearance Clear Urine pH 5.5 Ur Specific [place] 1.025 Urine Protein Negative Urine Glucose (UA) Negative Urine Ketones Trace Urine Blood Negative Urine Nitrite Negative Ur Leukocyte Esterase Trace H Urine RBC 0-2 Urine WBC 0-5 Ur Squamous Epith Cells 3-5 Calcium Oxalate Crystal Present Urine Bacteria None Seen Hyaline Casts 0-2 Salicylates < 5.0 L Urine Opiates Screen Not Detected Ur Buprenorphine Scrn Not Detected Ur Oxycodone Screen Not Detected Urine Methadone Screen Not Detected Urine Fentanyl Screen Not Detected Acetaminophen < 3 Ur Barbiturates Screen Not Detected Ur Phencyclidine Scrn Not Detected Ur Amphetamines Screen Not Detected U Benzodiazepines Scrn Not Detected Urine Cocaine Screen Not Detected U Marijuana (THC) Screen Not Detected Ethyl Alcohol < 10 12/10/24 06:12 WBC RBC Hgb Hct MCV MCH MCHC RDW Plt Count MPV Immature Gran % (Auto) Neut % (Auto) Lymph % (Auto) [place] % (Auto) Eos % (Auto) Baso % (Auto) Lymph # (Auto) [place] # (Auto) Eos # (Auto) Baso # (Auto) Abs Immat Gran (auto) Absolute Neuts (auto) Absolute Nucleated RBC Nucleated RBC % (auto) PT 17.6 H INR 1.5 H Sodium Potassium Chloride Carbon Dioxide Anion Gap BUN Creatinine Estim Creat Clear Calc Estimated GFR Random Glucose Calcium Magnesium Total Bilirubin AST ALT Alkaline Phosphatase Total Protein Albumin Lipase Urine Color Urine Appearance Urine pH Ur Specific [place] Urine Protein Urine Glucose (UA) Urine Ketones Urine Blood Urine Nitrite Ur Leukocyte Esterase Urine RBC Urine WBC Ur Squamous Epith Cells Calcium Oxalate Crystal Urine Bacteria Hyaline Casts Salicylates Urine Opiates Screen Ur Buprenorphine Scrn Ur Oxycodone Screen Urine Methadone Screen Urine Fentanyl Screen Acetaminophen Ur Barbiturates Screen Ur Phencyclidine Scrn Ur Amphetamines Screen U Benzodiazepines Scrn Urine Cocaine Screen U Marijuana (THC) Screen Ethyl Alcohol Meds/Allergies Meds Home Medications ?Medication ?Instructions ?Recorded ?Confirmed ?Type acetaminophen 325 mg tablet 325 mg PO QID PRN Mild Pain (Scale 12/07/24 12/09/24 History Score 1-4) amlodipine 5 mg tablet 5 mg PO DAILY 12/07/24 12/09/24 History furosemide 40 mg tablet 40 mg PO DAILY@0730 12/07/24 12/09/24 History losartan 50 mg tablet 50 mg PO DAILY 12/07/24 12/09/24 History potassium chloride 20 mEq 20 meq PO BID 12/07/24 12/09/24 History tablet,extended release(part/cryst) sotalol 160 mg tablet 160 mg PO BID 12/07/24 12/09/24 History trazodone 50 mg tablet 50 mg PO BEDTIME 12/07/24 12/09/24 History warfarin 2 mg tablet See Rx Instructions .Route .COMPLEX 12/07/24 12/09/24 History sertraline 50 mg tablet 75 mg PO DAILY 12/09/24 12/09/24 History ropinirole 2 mg tablet 4 mg PO BEDTIME 12/11/24 12/11/24 History Allergies Allergies Allergy/AdvReac Type Severity Reaction Status Date / Time naproxen Allergy Anaphylaxis Verified 12/09/24 16:28 Mental Status Exam Mental Status Exam Narrative: Appearance: wearing hospital gown, fair hygiene, very restless Behavior: guarded and suspicious Psychomotor: somewhat tremolous. Speech: mostly clear, normal rate/rhythm/volume, spontaneous TP: repetitive, TC: paranoid ideas of different people entering her house and others including family trying to harm her. Mood: how would you feel? Affect: fearful, guarded, tearful SI: denies HI: denies VH/AH: no overt signs Delusions: paranoid delusions Insight/judgment: impaired x2 Memory/cog: alert,oriented to place, month, year nor situation in that she thinks family conspiring to lock her up. pending moca, ACL. Assessment & Plan Assessment & Plan (1) Dementia without behavioral disturbance, psychotic disturbance, mood disturbance, or anxiety: Status: Acute Qualifiers: Dementia type: unspecified type Dementia severity: moderate Qualified Code(s): F03.B0 - Unspecified dementia, moderate, without behavioral disturbance, psychotic disturbance, mood disturbance, and anxiety Code(s): F03.90 - Unspecified dementia, unspecified severity, without behavioral disturbance, psychotic disturbance, mood disturbance, and anxiety Plan Mrs. Mosher is an 89 year-old woman with hx of paranoid delusions since 2021. She had been dx with dementia with behavioral disturbances. She had been on olanzapine and risperidone. It appears that both medications were eventually discontinued. Pt declined warfarin worried that it is poisoned. She is suspicious of family and has declined their help. We discussed risks, benefits and alternative treatment options. restart risperidone 0.5mg po BID. Pending MOCA/ ACL. PLAN 1. admit to s1, sect 12b, 5 mins check while assessing risk for falls 2. start risperidone 0.5mg po BID 3. OT assessments 4. Obtain collateral information 5. aftercare planning. Patient educated on: diagnosis and medication risk/benefits Guardian/Caregiver educated on: diagnosis and medication risk/benefits Informed Consent: does not understand Reason for continued inpatient stay Substantial Risk for: inability to function Statement Statement: I have reviewed the history and physical and performed a pertinent examination on my patient. No changes have occurred unless specified. If the History and Physical was not performed prior to admission, the Hospitalist's service will be consulted for completing the admission physical. Time Spent With Patient Time: Total time managing care of this patient today ____ minutes.
--- NOTE | 2024-12-10 16:01 | PC.NURSE ---
Coleen Mosher was admitted to S1, from the POD at 1456 on 12/10/2024. Neurologist Dr. Parham referred patient due to change in mental status, including delusions and paranoia. Per report from patients daughters, she has been experiencing delusions, possibly visual hallucinations, agitation, and confrontational behavior, which is unlike the patient. Patient lives alone, and reported to this RN that, That people have been bringing things in and taking things out of my apartment. . Per report, patient has been treated previously at [facility] for psychotic episode, she was prescribed olanzapine but stopped taking it when her symptoms improved. Coleen had another reported psychotic episode in January of 2024 and was then prescribed olanzapine, risperidone, and haldol, but is non compliant with medications. Patient reports a history of ETOH abuse. Coleen is AxOx3, she lacks situational awareness, stated, I am not mentally ill, I dont belong here, do not treat me like a child! If you can not see that I am not like these other patients then you should get a new job. . Patient is irritable, refusing to answer admission questions, , disorganized, tangential, illogical, paranoid and suspicious. Patient refused to sign all forms with the exception of the release for her PCP. Patient stated, You all are going to talk to my daughter Viviana no matter what, you already have and my insurance will be billed no matter what, non of this matters and if I sign I am probably signing my warrant. . Tox screen unremarkable. Coleen was offended that I asked if she wanted to hurt herself or anyone else, but then denied that she wanted to hurt herself or anyone else. Patient skin is unremarkable. Ambulates independently with no assistive devices. Coleen has a PMH of TAVR, CAD, carotid stenosis, HTN, AFIB, rectocele, cystocele, insomnia, RLS, right shoulder pain, and total knee replacement.
--- NOTE | 2024-12-11 06:50 | PM.EVENT ---
Event Note Date of Service: 12/11/24 Event Note: consult placed for subtherapeutic INR. pt is on warfarin and s/p TAVR. spoke with pharmacy about consult dosing for warfarin, consult placed. appears pt is going to get increased does of warfarin today. added labs for PT/INR for the next few days until INR is therapeutic. discussed with Dr Madrigal. Time Spent With Patient Time: Total time managing care of this patient today ____ minutes.
[2024-12-11 08:00] VITALS: BP 128/70; PULSE 76; RESP 16; TEMP 2.4; TEMP 36.4; O2SAT 94
[2024-12-11 08:38] VITALS: BP 140/83
[2024-12-11 09:01] LABS: INTERNATIONAL NORM RATIO 2.3 (0.9-1.1); Prothrombin Time 26.3 SEC (10.9-12.4)
[2024-12-11 09:08] VITALS: BP 128/70
[2024-12-11 09:09] VITALS: BP 128/70
[2024-12-11] MEDS: Potassium Chloride ER 20 MEQ TAB.ER.PRT PO ×2 (09:10→20:07)
--- NOTE | 2024-12-11 10:49 | HO.PM.IMCN ---
History of Present Illness Data of Consult Service Date: 12/11/24 Primary Care Provider: Sixto Bustamante MD [facility] Reason for consult: Medical management 89-year-old female, with a past medical history of anxiety, depression, cognitive impairment with behavioral disturbances, AFib on Coumadin, aortic stenosis status post TAVR, hypertension, coronary artery disease, HFpEF, obesity, and recurrent urinary tract infections who presents emergency department from Dr. Parham's office after being referred for psych eval. She is admitted to [facility] for continued care. Patient is seen on the unit. Answers minimal questions, just requesting to sign papers. She denies any shortness of breath or chest pain, denies any issues at all, does not know why she is here. Her INR is therapeutic today. All other blood work reviewed and is negative. Her vitals have been stable. Review of Systems Review of Systems: Denies any shortness of breath, chest pain, or abdominal pain. [facility] Medical History (Updated 12/11/24 @ 12:57 by Hattie Alexander DNP) Senile osteoporosis Right shoulder pain RLS (restless legs syndrome) Rectocele Insomnia HLD (hyperlipidemia) Hypertension FH: total knee replacement Carotid stenosis Atrial fibrillation Aortic stenosis Surgical History (Updated 12/07/24 @ 10:45 by Og Blackburn MA) Hx of total knee arthroplasty H/O eye surgery History of carpal tunnel release H/O aortic valve replacement H/O cystocele repair Social History Household Members: None Housing: Apartment Patient Tobacco Use Status: Never used Tobacco Smoked in Last 30 Days: No Use of substances other than those prescribed or required for medical reasons: No Advance Directives: No Advance Directives Information Provided: No Do you have a plan to hurt others: No Plan Recently lost weight without trying: Unsure Eating poorly because of decreased appetite: Yes Nutrition Risks: No Nutritional Risk Patient : No : No Poor oral hygiene: No Meds Allergies Allergy/AdvReac Type Severity Reaction Status Date / Time naproxen Allergy Anaphylaxis Verified 12/09/24 16:28 Active Medications: Current Medications Acetaminophen (Acetaminophen 325 Mg Tablet) 650 mg PO Q6H PRN PRN Reason: Headache/Pain, Scale 1-10 Last Admin: 12/11/24 01:22 Dose: 650 mg Al Hydroxide/Mg Hydroxide (Magnesium Hydrox/Alum Hydrox 30 Ml Oral.Susp) 30 ml PO Q6H PRN PRN Reason: Heartburn/Nausea Amlodipine Besylate (Amlodipine Besylate 5 Mg Tablet) 5 mg PO DAILY [facility]; Protocol Last Admin: 12/11/24 09:08 Dose: 5 mg Furosemide (Furosemide 40 Mg Tablet) 40 mg PO DAILY@0730 [facility]; Protocol Last Admin: 12/11/24 08:38 Dose: 40 mg Losartan Potassium (Losartan Potassium 50 Mg Tablet) 50 mg PO DAILY [facility]; Protocol Last Admin: 12/11/24 09:09 Dose: 50 mg Magnesium Hydroxide (Milk Of Magnesia 30 Ml Oral.Susp) 30 ml PO DAILY PRN PRN Reason: Constipation Non-Formulary Medication (Ropinirole) 4 mg PO DAILY@1700 [facility] Potassium Chloride (Potassium Chloride Er 20 Meq Tab.Er.Prt) 20 meq PO BID [facility] Last Admin: 12/11/24 09:10 Dose: 20 meq Risperidone (Risperidone 0.5 Mg Tablet) 0.5 mg PO BID [facility] Last Admin: 12/11/24 09:09 Dose: 0.5 mg Sertraline HCl (Sertraline Hcl 25 Mg Tablet) 75 mg PO DAILY [facility] Last Admin: 12/11/24 09:11 Dose: 75 mg Sotalol HCl (Sotalol Hcl 80 Mg Tablet) 160 mg PO BID [facility] Last Admin: 12/11/24 09:08 Dose: 160 mg Trazodone HCl (Trazodone Hcl 50 Mg Tablet) 50 mg PO BEDTIME [facility] Last Admin: 12/10/24 20:28 Dose: 50 mg Trazodone HCl (Trazodone Hcl 50 Mg Tablet) 50 mg PO BEDTIME PRN PRN Reason: Insomnia Last Admin: 12/11/24 01:22 Dose: 50 mg Warfarin Sodium (Warfarin Sodium 3 Mg Tablet) 3 mg PO DAILY@1800 [facility] Stop: 12/11/24 18:01 Warfarin Sodium (Warfarin Sodium 2 Mg Tablet) 2 mg PO DAILY@1800 [facility] Home Medications ?Medication ?Instructions ?Recorded ?Confirmed ?Last Taken ?Type acetaminophen 325 mg tablet 325 mg PO QID PRN Mild Pain (Scale 12/07/24 12/09/24 Unknown History Score 1-4) amlodipine 5 mg tablet 5 mg PO DAILY 12/07/24 12/09/24 12/09/24 History furosemide 40 mg tablet 40 mg PO DAILY@0730 12/07/24 12/09/24 12/09/24 History losartan 50 mg tablet 50 mg PO DAILY 12/07/24 12/09/24 12/09/24 History potassium chloride 20 mEq 20 meq PO BID 12/07/24 12/09/24 12/09/24 History tablet,extended release(part/cryst) sotalol 160 mg tablet 160 mg PO BID 12/07/24 12/09/24 12/09/24 History trazodone 50 mg tablet 50 mg PO BEDTIME 12/07/24 12/09/24 12/08/24 History warfarin 2 mg tablet See Rx Instructions .Route .COMPLEX 12/07/24 12/09/24 Unknown History sertraline 50 mg tablet 75 mg PO DAILY 12/09/24 12/09/24 12/09/24 History ropinirole 2 mg tablet 4 mg PO BEDTIME 12/11/24 12/11/24 Unknown History Physical Exam Vital Signs and Narrative: Vital Signs: Last Vital Signs Temp 97.3 F 12/10/24 20:00 Pulse 81 12/10/24 20:00 Resp 16 12/10/24 20:00 BP 128/70 12/11/24 09:09 Pulse Ox 95 12/10/24 20:00 O2 Del Method Room Air 12/10/24 20:00 BMI result Body Mass Index 29.6 CONST: Alert and oriented to self, in NAD. HEENT: Normocephalic, atraumatic, MMM, Eyes clear, Neck supple RESP: Lungs clear, RRR even and regular HEART:,RRR, S1, S2. No murmur, no edema GI:Abdomen Soft NT, ND. + BS times four :Deferred SKIN: Warm dry and intact, no visible lesions or rashes NEURO:CN II-XII Intact bilaterally, Sensation intact. Speech clear. Ambulating with steady gait. PSYCH: Preoccupied. Results Labs 12/09/24 18:04 12/09/24 18:04 Labs: Laboratory Results - last 24 hr 12/11/24 08:40 PT 26.3 H D INR 2.3 H Assessment and Plan (1) Chronic a-fib: Status: Acute Plan 89-year-old female with dementia, AFib, status post aortic stenosis with TAVR anticoagulated on warfarin, coronary artery disease, hypertension, heart failure with preserved EF, and restless leg syndrome, is admitted here to [facility] for continued treatment of behavioral changes. Dementia with behavioral disturbances Treatment per psychiatric team Recently seen by Dr. Parham. AFib/ a status post aortic stenosis with TAVR Rate controlled with sotalol Treatment with warfarin . INR therapeutic today CAD/hypertension/HFpEF Continue losartan, and amlodipine Appears euvolemic on exam, continue furosemide with potassium supplementation Periodically follow metabolic panel, stable with no abnormalities Restless leg syndrome Previously taking ropinirole. Dose recently decreased. Tylenol as needed Thank you for allowing me to participate in the care of this patient. Will follow as needed. Please reconsult of any acute concerns or issues arise
--- NOTE | 2024-12-11 14:59 | P.PNPSI_ITS ---
Subjective Subjective Date of Service: 12/11/24 Reason For Visit: Paranoid Delusions Subjective Notes: Section 12B Interim History: Pt only slept one hours, she reports due to restless leg syndrome and not receiving full dose of ropinirole. She did take all her medications. She presents slightly calmer today and less focused on paranoid ideas. She requested dose of ropinirole now, so she could see if she can sleep. No SI/HI. Review of Systems Review of Systems Denies any shortness of breath, chest pain, or abdominal pain. Yes all other systems are reviewed and are negative Constitutional: Reports as per HPI Mental Status Exam Mental Status Exam Narrative: Appearance: wearing hospital gown, fair hygiene, very restless Behavior: guarded and suspicious Psychomotor: somewhat tremolous. Speech: mostly clear, normal rate/rhythm/volume, spontaneous TP: repetitive, TC: paranoid ideas of different people entering her house and others including family trying to harm her. Mood: how would you feel? Affect: fearful, guarded, tearful SI: denies HI: denies VH/AH: no overt signs Delusions: paranoid delusions Insight/judgment: impaired x2 Memory/cog: alert,oriented to place, month, year nor situation in that she thinks family conspiring to lock her up. pending moca, ACL. Diagnostics Vital Signs (24Hr): Vital Signs - 24 hr 12/10/24 20:00 12/11/24 08:00 12/11/24 08:38 Temperature 97.3 F 36.4 F L Pulse Rate 81 76 Respiratory Rate 16 16 Blood Pressure 112/82 128/70 140/83 H Pulse Oximetry 95 94 Oxygen Delivery Method Room Air Room Air 12/11/24 09:08 12/11/24 09:09 Temperature Pulse Rate Respiratory Rate Blood Pressure 128/70 128/70 Pulse Oximetry Oxygen Delivery Method BMI result Body Mass Index 29.6 Labs 12/09/24 18:04 12/09/24 18:04 Labs: Laboratory Results - last 48 hr 12/09/24 12/09/24 12/09/24 17:47 17:48 18:04 WBC 7.4 RBC 4.38 Hgb 13.4 Hct 39.3 MCV 89.7 MCH 30.6 MCHC 34.1 RDW 14.3 Plt Count 268 MPV 9.8 Immature Gran % (Auto) 0.4 Neut % (Auto) 73.1 H Lymph % (Auto) 16.5 L [place] % (Auto) 8.7 Eos % (Auto) 0.9 Baso % (Auto) 0.4 Lymph # (Auto) 1.2 [place] # (Auto) 0.7 Eos # (Auto) 0.1 Baso # (Auto) 0.0 Abs Immat Gran (auto) 0.03 Absolute Neuts (auto) 5.4 Absolute Nucleated RBC 0.000 Nucleated RBC % (auto) 0.0 PT 16.1 H INR 1.4 H Sodium 140 Potassium 4.5 Chloride 103 Carbon Dioxide 26 Anion Gap 16 BUN 14 Creatinine 0.56 Estim Creat Clear Calc 59.0 Estimated GFR > 60 Random Glucose 106 Calcium 9.6 Magnesium 2.1 Total Bilirubin 1.0 AST 30 ALT 16 Alkaline Phosphatase 79 Total Protein 7.5 Albumin 4.4 Lipase 25 Urine Color Yellow Urine Appearance Clear Urine pH 5.5 Ur Specific [place] 1.025 Urine Protein Negative Urine Glucose (UA) Negative Urine Ketones Trace Urine Blood Negative Urine Nitrite Negative Ur Leukocyte Esterase Trace H Urine RBC 0-2 Urine WBC 0-5 Ur Squamous Epith Cells 3-5 Calcium Oxalate Crystal Present Urine Bacteria None Seen Hyaline Casts 0-2 Salicylates < 5.0 L Urine Opiates Screen Not Detected Ur Buprenorphine Scrn Not Detected Ur Oxycodone Screen Not Detected Urine Methadone Screen Not Detected Urine Fentanyl Screen Not Detected Acetaminophen < 3 Ur Barbiturates Screen Not Detected Ur Phencyclidine Scrn Not Detected Ur Amphetamines Screen Not Detected U Benzodiazepines Scrn Not Detected Urine Cocaine Screen Not Detected U Marijuana (THC) Screen Not Detected Ethyl Alcohol < 10 12/10/24 12/11/24 06:12 08:40 WBC RBC Hgb Hct MCV MCH MCHC RDW Plt Count MPV Immature Gran % (Auto) Neut % (Auto) Lymph % (Auto) [place] % (Auto) Eos % (Auto) Baso % (Auto) Lymph # (Auto) [place] # (Auto) Eos # (Auto) Baso # (Auto) Abs Immat Gran (auto) Absolute Neuts (auto) Absolute Nucleated RBC Nucleated RBC % (auto) PT 17.6 H 26.3 H D INR 1.5 H 2.3 H Sodium Potassium Chloride Carbon Dioxide Anion Gap BUN Creatinine Estim Creat Clear Calc Estimated GFR Random Glucose Calcium Magnesium Total Bilirubin AST ALT Alkaline Phosphatase Total Protein Albumin Lipase Urine Color Urine Appearance Urine pH Ur Specific [place] Urine Protein Urine Glucose (UA) Urine Ketones Urine Blood Urine Nitrite Ur Leukocyte Esterase Urine RBC Urine WBC Ur Squamous Epith Cells Calcium Oxalate Crystal Urine Bacteria Hyaline Casts Salicylates Urine Opiates Screen Ur Buprenorphine Scrn Ur Oxycodone Screen Urine Methadone Screen Urine Fentanyl Screen Acetaminophen Ur Barbiturates Screen Ur Phencyclidine Scrn Ur Amphetamines Screen U Benzodiazepines Scrn Urine Cocaine Screen U Marijuana (THC) Screen Ethyl Alcohol Medications Medications Current Medications Acetaminophen (Acetaminophen 325 Mg Tablet) 650 mg PO Q6H PRN PRN Reason: Headache/Pain, Scale 1-10 Last Admin: 12/11/24 01:22 Dose: 650 mg Al Hydroxide/Mg Hydroxide (Magnesium Hydrox/Alum Hydrox 30 Ml Oral.Susp) 30 ml PO Q6H PRN PRN Reason: Heartburn/Nausea Amlodipine Besylate (Amlodipine Besylate 5 Mg Tablet) 5 mg PO DAILY [facility]; Protocol Last Admin: 12/11/24 09:08 Dose: 5 mg Furosemide (Furosemide 40 Mg Tablet) 40 mg PO DAILY@0730 [facility]; Protocol Last Admin: 12/11/24 08:38 Dose: 40 mg Losartan Potassium (Losartan Potassium 50 Mg Tablet) 50 mg PO DAILY [facility]; Protocol Last Admin: 12/11/24 09:09 Dose: 50 mg Magnesium Hydroxide (Milk Of Magnesia 30 Ml Oral.Susp) 30 ml PO DAILY PRN PRN Reason: Constipation Potassium Chloride (Potassium Chloride Er 20 Meq Tab.Er.Prt) 20 meq PO BID [facility] Last Admin: 12/11/24 09:10 Dose: 20 meq Risperidone (Risperidone 0.5 Mg Tablet) 0.5 mg PO BID [facility] Last Admin: 12/11/24 09:09 Dose: 0.5 mg Ropinirole HCl (Ropinirole Hcl 2 Mg Tablet) 4 mg PO DAILY@1700 [facility] Sertraline HCl (Sertraline Hcl 25 Mg Tablet) 75 mg PO DAILY [facility] Last Admin: 12/11/24 09:11 Dose: 75 mg Sotalol HCl (Sotalol Hcl 80 Mg Tablet) 160 mg PO BID [facility] Last Admin: 12/11/24 09:08 Dose: 160 mg Trazodone HCl (Trazodone Hcl 50 Mg Tablet) 50 mg PO BEDTIME [facility] Last Admin: 12/10/24 20:28 Dose: 50 mg Trazodone HCl (Trazodone Hcl 50 Mg Tablet) 50 mg PO BEDTIME PRN PRN Reason: Insomnia Last Admin: 12/11/24 01:22 Dose: 50 mg Warfarin Sodium (Warfarin Sodium 3 Mg Tablet) 3 mg PO DAILY@1800 [facility] Stop: 12/11/24 18:01 Warfarin Sodium (Warfarin Sodium 2 Mg Tablet) 2 mg PO DAILY@1800 [facility] Allergies Allergies Allergy/AdvReac Type Severity Reaction Status Date / Time naproxen Allergy Anaphylaxis Verified 12/09/24 16:28 Assessment & Plan Assessment & Plan (1) Dementia without behavioral disturbance, psychotic disturbance, mood disturbance, or anxiety: Qualifiers: Dementia type: unspecified type Dementia severity: moderate Qualified Code(s): F03.B0 - Unspecified dementia, moderate, without behavioral disturbance, psychotic disturbance, mood disturbance, and anxiety Status: Acute Code(s): F03.90 - Unspecified dementia, unspecified severity, without behavioral disturbance, psychotic disturbance, mood disturbance, and anxiety Plan Mrs. Mosher is an 89 year-old woman with hx of paranoid delusions since 2021. She had been dx with dementia with behavioral disturbances. She had been on olanzapine and risperidone. It appears that both medications were eventually discontinued. Pt declined warfarin worried that it is poisoned. She is suspicious of family and has declined their help. We discussed risks, benefits and alternative treatment options. restart risperidone 0.5mg po BID. Pending MOCA/ ACL. PLAN 12/11 continue tx. Reason for continued inpatient stay Substantial Risk for: inability to function Time Spent With Patient Time: Total time managing care of this patient today ____ minutes.
[2024-12-11 20:00] VITALS: BP 141/70; PULSE 71; RESP 18; TEMP 36.2; O2SAT 94
[2024-12-12 07:57] VITALS: BP 147/92; PULSE 77; RESP 20; TEMP 36.6; O2SAT 95
[2024-12-12] MEDS: Potassium Chloride ER 20 MEQ TAB.ER.PRT PO ×2 (08:05→20:00)
[2024-12-12 08:21] LABS: INTERNATIONAL NORM RATIO 2.6 (0.9-1.1); Prothrombin Time 30.4 SEC (10.9-12.4)
--- NOTE | 2024-12-12 18:48 | P.PNPSI_ITS ---
Subjective Subjective Date of Service: 12/12/24 Reason For Visit: Paranoid Delusions Interim History: Patient appears to be tolerating risperidone initiation this far. Staff reported that she can be quite irritable at times. Also reviewed PT/INR data from the last few days, as well as the recent dosage decrease in Warfarin. Patient was suspicious on this marketing underwriter?s approach. Transportation Job Titles attempted to review the lab results on the treatment plan, this was difficult for patient, and she became irritable and more suspicious of this marketing underwriter's intent in her care. Medication Compliance: Yes Side effects from medications: No Attending Groups: Intermittent Review of Systems Acute medical concerns: No Medical Review of Systems: unchanged Mental Status Exam Mental Status Exam Narrative: Appearance: casual attire, adequate grooming and hygiene Behavior: suspicious Orientation: alert, grossly oriented Memory: confusion about recent events in her care Attention: able to attend to the encounter discussion Psychomotor Function: no agitation or slowing; no abnormal gestures or movements Speech: normal rate, tone, volume Mood: Fine I guess Affect: irritable Thought Process: coherent Thought Content: focus on medical care; denies SI/HI Hallucinations: denies AVH delusions: paranoid towards marketing underwriter Insight: impairment Judgment: impairment Impulsivity: none noted Diagnostics Vital Signs (24Hr): Vital Signs - 24 hr 12/11/24 20:00 12/12/24 07:57 Temperature 97.2 F 97.9 F Pulse Rate 71 77 Respiratory Rate 18 20 Blood Pressure 141/70 H 147/92 H Pulse Oximetry 94 95 Oxygen Delivery Method Room Air BMI result Body Mass Index 29.6 Labs 12/09/24 18:04 12/09/24 18:04 Labs: Laboratory Results - last 48 hr 12/11/24 12/12/24 08:40 07:50 Hold Purple Top SEE NOTE PT 26.3 H D 30.4 H INR 2.3 H 2.6 H Medications Medications Current Medications Acetaminophen (Acetaminophen 325 Mg Tablet) 650 mg PO Q6H PRN PRN Reason: Headache/Pain, Scale 1-10 Last Admin: 12/11/24 01:22 Dose: 650 mg Al Hydroxide/Mg Hydroxide (Magnesium Hydrox/Alum Hydrox 30 Ml Oral.Susp) 30 ml PO Q6H PRN PRN Reason: Heartburn/Nausea Amlodipine Besylate (Amlodipine Besylate 5 Mg Tablet) 5 mg PO DAILY [facility]; Protocol Last Admin: 12/12/24 08:04 Dose: 5 mg Furosemide (Furosemide 40 Mg Tablet) 40 mg PO DAILY@0730 [facility]; Protocol Last Admin: 12/12/24 08:04 Dose: 40 mg Gabapentin (Gabapentin 100 Mg Capsule) 100 mg PO BEDTIME [facility] Last Admin: 12/11/24 20:08 Dose: 100 mg Losartan Potassium (Losartan Potassium 50 Mg Tablet) 50 mg PO DAILY [facility]; Protocol Last Admin: 12/12/24 08:04 Dose: 50 mg Magnesium Hydroxide (Milk Of Magnesia 30 Ml Oral.Susp) 30 ml PO DAILY PRN PRN Reason: Constipation Potassium Chloride (Potassium Chloride Er 20 Meq Tab.Er.Prt) 20 meq PO BID [facility] Last Admin: 12/12/24 08:05 Dose: 20 meq Risperidone (Risperidone 0.5 Mg Tablet) 0.5 mg PO BID [facility] Last Admin: 12/12/24 08:05 Dose: 0.5 mg Ropinirole HCl (Ropinirole Hcl 2 Mg Tablet) 4 mg PO DAILY@1800 [facility] Last Admin: 12/12/24 18:17 Dose: 4 mg Sertraline HCl (Sertraline Hcl 25 Mg Tablet) 75 mg PO DAILY [facility] Last Admin: 12/12/24 08:03 Dose: 75 mg Sotalol HCl (Sotalol Hcl 80 Mg Tablet) 160 mg PO BID [facility] Last Admin: 12/12/24 08:04 Dose: 160 mg Trazodone HCl (Trazodone Hcl 50 Mg Tablet) 50 mg PO BEDTIME [facility] Last Admin: 12/11/24 20:08 Dose: 50 mg Trazodone HCl (Trazodone Hcl 50 Mg Tablet) 50 mg PO BEDTIME PRN PRN Reason: Insomnia Last Admin: 12/11/24 01:22 Dose: 50 mg Warfarin Sodium (Warfarin Sodium 2 Mg Tablet) 2 mg PO DAILY@1800 [facility] Last Admin: 12/12/24 17:28 Dose: 2 mg Allergies Allergies Allergy/AdvReac Type Severity Reaction Status Date / Time naproxen Allergy Anaphylaxis Verified 12/09/24 16:28 Assessment & Plan Assessment & Plan (1) Dementia without behavioral disturbance, psychotic disturbance, mood disturbance, or anxiety: Qualifiers: Dementia type: unspecified type Dementia severity: moderate Qualified Code(s): F03.B0 - Unspecified dementia, moderate, without behavioral disturbance, psychotic disturbance, mood disturbance, and anxiety Status: Acute Code(s): F03.90 - Unspecified dementia, unspecified severity, without behavioral disturbance, psychotic disturbance, mood disturbance, and anxiety Plan Mrs. Mosher is an 89 year-old woman with hx of paranoid delusions since 2021. She had been dx with dementia with behavioral disturbances. She had been on olanzapine and risperidone. It appears that both medications were eventually discontinued. Pt declined warfarin worried that it is poisoned. She is suspicious of family and has declined their help. We discussed risks, benefits and alternative treatment options. restart risperidone 0.5mg po BID. Pending MOCA/ ACL. PLAN 12/11 continue tx. 12/12: continue to monitor PT/INR on Warfarin 2 mg daily Patient educated on: diagnosis and medication risk/benefits Reason for continued inpatient stay Substantial Risk for: inability to function Time Spent With Patient Time: Total time managing care of this patient today ____ minutes.
[2024-12-12 20:00] VITALS: BP 146/70; PULSE 78; RESP 18; TEMP 36.3; O2SAT 94
[2024-12-13 08:00] VITALS: BP 155/68; PULSE 76; RESP 14; TEMP 36.8; O2SAT 95
[2024-12-13] MEDS: Potassium Chloride ER 20 MEQ TAB.ER.PRT PO ×2 (08:06→20:32)
[2024-12-13 08:59] LABS: INTERNATIONAL NORM RATIO 2.8 (0.9-1.1); Prothrombin Time 31.6 SEC (10.9-12.4)
--- NOTE | 2024-12-13 17:11 | HO.PSYCHPN ---
Subjective Subjective Date of Service: 12/13/24 Reason For Visit: Paranoid Delusions Interim History: Patient appears to be tolerating risperidone initiation this far. Less irritable than yesterday. PT/INR starting to plateau over the weekend on 2 mg daily. Patient was less suspicious on this movie writer?s approach. She stated that she was feeling fine, not depressed. Reports sleeping well. Seems to be more accepting of plan for daily PT/INR Medication Compliance: Yes Side effects from medications: No Attending Groups: Intermittent Review of Systems Acute medical concerns: No Medical Review of Systems: unchanged Mental Status Exam Mental Status Exam Narrative: Appearance: casual attire, adequate grooming and hygiene Behavior: cooperative with encounter Orientation: alert, grossly oriented Memory: aware of plans and able to recall activities today Attention: able to attend to the encounter discussion Psychomotor Function: no agitation or slowing; no abnormal gestures or movements Speech: normal rate, tone, volume Mood: fine not depressed Affect: appropriate to context Thought Process: coherent Thought Content: denies SI/HI Hallucinations: denies AVH delusions: none overtly evinced Insight: mild impairment Judgment: mild impairment Impulsivity: none noted Diagnostics Vital Signs (24Hr): Vital Signs - 24 hr 12/12/24 20:00 12/13/24 08:00 Temperature 97.3 F 98.3 F Pulse Rate 78 76 Respiratory Rate 18 14 Blood Pressure 146/70 H 155/68 H Pulse Oximetry 94 95 Oxygen Delivery Method Room Air Room Air BMI result Body Mass Index 29.6 Labs 12/09/24 18:04 12/09/24 18:04 Labs: Laboratory Results - last 48 hr 12/12/24 12/13/24 07:50 07:39 Hold Purple Top SEE NOTE PT 30.4 H 31.6 H INR 2.6 H 2.8 H Medications Medications Current Medications Acetaminophen (Acetaminophen 325 Mg Tablet) 650 mg PO Q6H PRN PRN Reason: Headache/Pain, Scale 1-10 Last Admin: 12/12/24 20:01 Dose: 650 mg Al Hydroxide/Mg Hydroxide (Magnesium Hydrox/Alum Hydrox 30 Ml Oral.Susp) 30 ml PO Q6H PRN PRN Reason: Heartburn/Nausea Amlodipine Besylate (Amlodipine Besylate 5 Mg Tablet) 5 mg PO DAILY [facility]; Protocol Last Admin: 12/13/24 08:07 Dose: 5 mg Furosemide (Furosemide 40 Mg Tablet) 40 mg PO DAILY@0730 [facility]; Protocol Last Admin: 12/13/24 08:07 Dose: 40 mg Gabapentin (Gabapentin 100 Mg Capsule) 100 mg PO BEDTIME [facility] Last Admin: 12/12/24 20:04 Dose: 100 mg Losartan Potassium (Losartan Potassium 50 Mg Tablet) 50 mg PO DAILY [facility]; Protocol Last Admin: 12/13/24 08:06 Dose: 50 mg Magnesium Hydroxide (Milk Of Magnesia 30 Ml Oral.Susp) 30 ml PO DAILY PRN PRN Reason: Constipation Potassium Chloride (Potassium Chloride Er 20 Meq Tab.Er.Prt) 20 meq PO BID [facility] Last Admin: 12/13/24 08:06 Dose: 20 meq Risperidone (Risperidone 0.5 Mg Tablet) 0.5 mg PO BID [facility] Last Admin: 12/13/24 08:07 Dose: 0.5 mg Ropinirole HCl (Ropinirole Hcl 2 Mg Tablet) 4 mg PO DAILY@1800 [facility] Last Admin: 12/12/24 18:17 Dose: 4 mg Sertraline HCl (Sertraline Hcl 25 Mg Tablet) 75 mg PO DAILY [facility] Last Admin: 12/13/24 08:05 Dose: 75 mg Sotalol HCl (Sotalol Hcl 80 Mg Tablet) 160 mg PO BID [facility] Last Admin: 12/13/24 08:05 Dose: 160 mg Trazodone HCl (Trazodone Hcl 50 Mg Tablet) 50 mg PO BEDTIME [facility] Last Admin: 12/12/24 20:01 Dose: 50 mg Trazodone HCl (Trazodone Hcl 50 Mg Tablet) 50 mg PO BEDTIME PRN PRN Reason: Insomnia Last Admin: 12/13/24 02:15 Dose: 50 mg Warfarin Sodium (Warfarin Sodium 2 Mg Tablet) 2 mg PO DAILY@1800 [facility] Last Admin: 12/12/24 17:28 Dose: 2 mg Allergies Allergies Allergy/AdvReac Type Severity Reaction Status Date / Time naproxen Allergy Anaphylaxis Verified 12/09/24 16:28 Assessment & Plan Assessment & Plan (1) Dementia without behavioral disturbance, psychotic disturbance, mood disturbance, or anxiety: Qualifiers: Dementia type: unspecified type Dementia severity: moderate Qualified Code(s): F03.B0 - Unspecified dementia, moderate, without behavioral disturbance, psychotic disturbance, mood disturbance, and anxiety Status: Acute Code(s): F03.90 - Unspecified dementia, unspecified severity, without behavioral disturbance, psychotic disturbance, mood disturbance, and anxiety Plan Mrs. Mosher is an 89 year-old woman with hx of paranoid delusions since 2021. She had been dx with dementia with behavioral disturbances. She had been on olanzapine and risperidone. It appears that both medications were eventually discontinued. Pt declined warfarin worried that it is poisoned. She is suspicious of family and has declined their help. We discussed risks, benefits and alternative treatment options. restart risperidone 0.5mg po BID. Pending MOCA/ ACL. PLAN 12/11 continue tx. 12/12: continue to monitor PT/INR on Warfarin 2 mg daily 12/13: continue to monitor PT/INR on Warfarin 2 mg daily Patient educated on: medication risk/benefits Informed Consent: understands Reason for continued inpatient stay Substantial Risk for: inability to function and rapid decompensation Time Spent With Patient Time: Total time managing care of this patient today __15__ minutes.
[2024-12-13 20:00] VITALS: BP 108/57; PULSE 93; RESP 18; TEMP 36.4; O2SAT 93
[2024-12-14 08:00] VITALS: BP 129/65; PULSE 84; RESP 18; TEMP 36.4; O2SAT 95
[2024-12-14 08:14] LABS: INTERNATIONAL NORM RATIO 2.8 (0.9-1.1); Prothrombin Time 32.2 SEC (10.9-12.4)
[2024-12-14 08:38] VITALS: BP 129/65
[2024-12-14] MEDS: Potassium Chloride ER 20 MEQ TAB.ER.PRT PO ×2 (08:39→19:56)
[2024-12-14 08:40] VITALS: BP 129/65
--- NOTE | 2024-12-14 08:51 | HO.PSYCHPN ---
Subjective Subjective Date of Service: 12/14/24 Reason For Visit: Paranoid Delusions Subjective Notes: Section 12B Interim History: Pt sleeping through the night. She has been taking medications as prescribed. She is calmer. However, she is very suspicious about this proposal writer and others things she has noticed on the unit. She reports her VS where taken today in her room and not in common area and she finds this very suspicious. At times, she states you know what is going on, why don't you say something? She does not think she belongs here , states I am not like the other people here, and you know it MOCA completed scored 25/30 impairments in visuospatial, attention, naming (2/3), recall (4/5), intact orientation. ACL 4.2 showing moderate cognitive impairment. Mental Status Exam Mental Status Exam Narrative: Appearance: wearing hospital gown, fair hygiene, very restless Behavior: guarded and suspicious Psychomotor: somewhat tremolous. Speech: mostly clear, normal rate/rhythm/volume, spontaneous TP: repetitive, TC: paranoid ideas of different people entering her house and others including family trying to harm her. Mood: how would you feel? Affect: fearful, guarded, tearful SI: denies HI: denies VH/AH: no overt signs Delusions: paranoid delusions Insight/judgment: impaired x2 Memory/cog: alert,oriented to place, month, year. Not so much to situation. MOCA completed on 12/14/2024, scored 25/30 impairments in visuospatial, attention, naming (2/3), recall (4/5), intact orientation. ACL 4.2 showing moderate cognitive impairment. Diagnostics Vital Signs (24Hr): Vital Signs - 24 hr 12/13/24 20:00 12/14/24 08:38 12/14/24 08:40 Temperature 97.5 F Pulse Rate 93 Respiratory Rate 18 Blood Pressure 108/57 L 129/65 129/65 Pulse Oximetry 93 Oxygen Delivery Method Room Air 12/14/24 08:40 Temperature Pulse Rate Respiratory Rate Blood Pressure 129/65 Pulse Oximetry Oxygen Delivery Method BMI result Body Mass Index 29.6 Labs 12/09/24 18:04 12/09/24 18:04 Labs: Laboratory Results - last 48 hr 12/13/24 12/14/24 07:39 08:02 PT 31.6 H 32.2 H INR 2.8 H 2.8 H Medications Medications Current Medications Acetaminophen (Acetaminophen 325 Mg Tablet) 650 mg PO Q6H PRN PRN Reason: Headache/Pain, Scale 1-10 Last Admin: 12/12/24 20:01 Dose: 650 mg Al Hydroxide/Mg Hydroxide (Magnesium Hydrox/Alum Hydrox 30 Ml Oral.Susp) 30 ml PO Q6H PRN PRN Reason: Heartburn/Nausea Amlodipine Besylate (Amlodipine Besylate 5 Mg Tablet) 5 mg PO DAILY [facility]; Protocol Last Admin: 12/14/24 08:38 Dose: 5 mg Furosemide (Furosemide 40 Mg Tablet) 40 mg PO DAILY@0730 [facility]; Protocol Last Admin: 12/14/24 08:40 Dose: 40 mg Gabapentin (Gabapentin 100 Mg Capsule) 100 mg PO BEDTIME [facility] Last Admin: 12/13/24 20:33 Dose: 100 mg Losartan Potassium (Losartan Potassium 50 Mg Tablet) 50 mg PO DAILY [facility]; Protocol Last Admin: 12/14/24 08:40 Dose: 50 mg Magnesium Hydroxide (Milk Of Magnesia 30 Ml Oral.Susp) 30 ml PO DAILY PRN PRN Reason: Constipation Potassium Chloride (Potassium Chloride Er 20 Meq Tab.Er.Prt) 20 meq PO BID [facility] Last Admin: 12/14/24 08:39 Dose: 20 meq Risperidone (Risperidone 0.5 Mg Tablet) 0.5 mg PO BID [facility] Last Admin: 12/14/24 08:39 Dose: 0.5 mg Ropinirole HCl (Ropinirole Hcl 2 Mg Tablet) 4 mg PO DAILY@1800 [facility] Last Admin: 12/13/24 17:31 Dose: 4 mg Sertraline HCl (Sertraline Hcl 25 Mg Tablet) 75 mg PO DAILY [facility] Last Admin: 12/14/24 08:39 Dose: 75 mg Sotalol HCl (Sotalol Hcl 80 Mg Tablet) 160 mg PO BID [facility] Last Admin: 12/14/24 08:39 Dose: 160 mg Trazodone HCl (Trazodone Hcl 50 Mg Tablet) 50 mg PO BEDTIME [facility] Last Admin: 12/13/24 20:33 Dose: 50 mg Trazodone HCl (Trazodone Hcl 50 Mg Tablet) 50 mg PO BEDTIME PRN PRN Reason: Insomnia Last Admin: 12/14/24 01:14 Dose: 50 mg Warfarin Sodium (Warfarin Sodium 2 Mg Tablet) 2 mg PO DAILY@1800 [facility] Last Admin: 12/13/24 17:31 Dose: 2 mg Allergies Allergies Allergy/AdvReac Type Severity Reaction Status Date / Time naproxen Allergy Anaphylaxis Verified 12/09/24 16:28 Assessment & Plan Assessment & Plan (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 Mosher is an 89 year-old woman with hx of paranoid delusions since 2021. She had been dx with dementia with behavioral disturbances. She had been on olanzapine and risperidone. It appears that both medications were eventually discontinued. Pt declined warfarin worried that it is poisoned. She is suspicious of family and has declined their help. We discussed risks, benefits and alternative treatment options. restart risperidone 0.5mg po BID. Pending MOCA/ ACL. PLAN 12/11 continue tx. 12/12: continue to monitor PT/INR on Warfarin 2 mg daily 12/13: continue to monitor PT/INR on Warfarin 2 mg daily 12/14 continue tx. increase risperidone at night time, to 0.75mg po qhs, continue 0.5mg po daily. Reason for continued inpatient stay Substantial Risk for: inability to function Time Spent With Patient Time: Total time managing care of this patient today ____ minutes.
[2024-12-14 20:00] VITALS: BP 163/81; PULSE 91; RESP 17; TEMP 36.6; O2SAT 93
[2024-12-15 07:37] LABS: INTERNATIONAL NORM RATIO 2.7 (0.9-1.1); Prothrombin Time 30.8 SEC (10.9-12.4)
[2024-12-15 08:00] VITALS: BP 158/74; PULSE 89; RESP 18; TEMP 36.3; O2SAT 94
[2024-12-15 08:04] VITALS: BP 158/74
[2024-12-15] MEDS: Potassium Chloride ER 20 MEQ TAB.ER.PRT PO ×2 (08:04→20:28)
[2024-12-15 08:05] VITALS: BP 158/74
--- NOTE | 2024-12-15 18:17 | HO.PSYCHPN ---
Subjective Subjective Date of Service: 12/15/24 Reason For Visit: Paranoid Delusions Subjective Notes: Section 7 Interim History: Pt sleeping through the night. She presents as slightly calmer, but still very suspicious about staff and other activities on the unit. She reports I will go with the plan, one day someone will come forward and admit what they have done. We had family meeting discussed dx of vascular dementia and paranoid delusions related to dementing process not primarily psychiatric disorder. MOCA completed scored 25/30 impairments in visuospatial, attention, naming (2/3), recall (4/5), intact orientation. ACL 4.2 showing moderate cognitive impairment. Review of Systems Review of Systems Denies any shortness of breath, chest pain, or abdominal pain. Yes all other systems are reviewed and are negative Constitutional: Reports as per [facility] Mental Status Exam Mental Status Exam Narrative: Appearance: wearing hospital gown, fair hygiene, very restless Behavior: guarded and suspicious Psychomotor: somewhat tremolous. Speech: mostly clear, normal rate/rhythm/volume, spontaneous TP: repetitive, TC: paranoid ideas of different people entering her house and others including family trying to harm her. Mood: how would you feel? Affect: fearful, guarded, tearful SI: denies HI: denies VH/AH: no overt signs Delusions: paranoid delusions Insight/judgment: impaired x2 Memory/cog: alert,oriented to place, month, year. Not so much to situation. MOCA completed on 12/14/2024, scored 25/30 impairments in visuospatial, attention, naming (2/3), recall (4/5), intact orientation. ACL 4.2 showing moderate cognitive impairment. Diagnostics Vital Signs (24Hr): Vital Signs - 24 hr 12/14/24 20:00 12/15/24 08:00 12/15/24 08:04 Temperature 97.8 F 97.3 F Pulse Rate 91 89 Respiratory Rate 17 18 Blood Pressure 163/81 H 158/74 H 158/74 H Pulse Oximetry 93 94 Oxygen Delivery Method Room Air Room Air 12/15/24 08:04 12/15/24 08:05 Temperature Pulse Rate Respiratory Rate Blood Pressure 158/74 H 158/74 H Pulse Oximetry Oxygen Delivery Method BMI result Body Mass Index 29.6 Labs 12/09/24 18:04 12/09/24 18:04 Labs: Laboratory Results - last 48 hr 12/14/24 12/15/24 08:02 07:27 PT 32.2 H 30.8 H INR 2.8 H 2.7 H Medications Medications Current Medications Acetaminophen (Acetaminophen 325 Mg Tablet) 650 mg PO Q6H PRN PRN Reason: Headache/Pain, Scale 1-10 Last Admin: 12/12/24 20:01 Dose: 650 mg Al Hydroxide/Mg Hydroxide (Magnesium Hydrox/Alum Hydrox 30 Ml Oral.Susp) 30 ml PO Q6H PRN PRN Reason: Heartburn/Nausea Amlodipine Besylate (Amlodipine Besylate 5 Mg Tablet) 5 mg PO DAILY [facility]; Protocol Last Admin: 12/15/24 08:04 Dose: 5 mg Furosemide (Furosemide 40 Mg Tablet) 40 mg PO DAILY@0730 [facility]; Protocol Last Admin: 12/15/24 08:05 Dose: 40 mg Gabapentin (Gabapentin 100 Mg Capsule) 100 mg PO BEDTIME [facility] Last Admin: 12/14/24 19:56 Dose: 100 mg Losartan Potassium (Losartan Potassium 50 Mg Tablet) 50 mg PO DAILY [facility]; Protocol Last Admin: 12/15/24 08:04 Dose: 50 mg Magnesium Hydroxide (Milk Of Magnesia 30 Ml Oral.Susp) 30 ml PO DAILY PRN PRN Reason: Constipation Potassium Chloride (Potassium Chloride Er 20 Meq Tab.Er.Prt) 20 meq PO BID [facility] Last Admin: 12/15/24 08:04 Dose: 20 meq Risperidone (Risperidone 0.5 Mg Tablet) 0.5 mg PO DAILY [facility] Last Admin: 12/15/24 08:05 Dose: 0.5 mg Risperidone (Risperidone 0.25 Mg Tablet) 0.75 mg PO BEDTIME [facility] Last Admin: 12/14/24 19:55 Dose: 0.75 mg Ropinirole HCl (Ropinirole Hcl 2 Mg Tablet) 4 mg PO DAILY@1800 [facility] Last Admin: 12/14/24 17:50 Dose: 4 mg Sertraline HCl (Sertraline Hcl 25 Mg Tablet) 75 mg PO DAILY [facility] Last Admin: 12/15/24 08:05 Dose: 75 mg Sotalol HCl (Sotalol Hcl 80 Mg Tablet) 160 mg PO BID [facility] Last Admin: 12/15/24 08:04 Dose: 160 mg Trazodone HCl (Trazodone Hcl 50 Mg Tablet) 50 mg PO BEDTIME [facility] Last Admin: 12/14/24 19:56 Dose: 50 mg Trazodone HCl (Trazodone Hcl 50 Mg Tablet) 50 mg PO BEDTIME PRN PRN Reason: Insomnia Last Admin: 12/15/24 00:16 Dose: 50 mg Warfarin Sodium (Warfarin Sodium 2 Mg Tablet) 2 mg PO DAILY@1800 [facility] Last Admin: 12/14/24 17:50 Dose: 2 mg Allergies Allergies Allergy/AdvReac Type Severity Reaction Status Date / Time naproxen Allergy Anaphylaxis Verified 12/09/24 16:28 Assessment & Plan Assessment & Plan (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 Mosher is an 89 year-old woman with hx of paranoid delusions since 2021. She had been dx with dementia with behavioral disturbances. She had been on olanzapine and risperidone. It appears that both medications were eventually discontinued. Pt declined warfarin worried that it is poisoned. She is suspicious of family and has declined their help. We discussed risks, benefits and alternative treatment options. restart risperidone 0.5mg po BID. Pending MOCA/ ACL. PLAN 12/11 continue tx. 12/12: continue to monitor PT/INR on Warfarin 2 mg daily 12/13: continue to monitor PT/INR on Warfarin 2 mg daily 12/14 continue tx. increase risperidone at night time, to 0.75mg po qhs, continue 0.5mg po daily. 12/15 We had family meeting discussed dx of vascular dementia and paranoid delusions related to dementing process not primarily psychiatric disorder. filed as pt on sect 12b and not stable to be discharged. Reason for continued inpatient stay Substantial Risk for: inability to function Time Spent With Patient Time: Total time managing care of this patient today ____ minutes.
[2024-12-15 20:00] VITALS: BP 166/86; PULSE 96; RESP 18; TEMP 37.1; O2SAT 94
--- NOTE | 2024-12-15 22:09 | PC.NURSE ---
Pt declined Gabapentin 100mg.
[2024-12-16 08:19] VITALS: BP 152/67; PULSE 92; RESP 17; TEMP 36.2; O2SAT 95
[2024-12-16] MEDS: Potassium Chloride ER 20 MEQ TAB.ER.PRT PO ×2 (08:48→20:11)
[2024-12-16 10:40] LABS: INTERNATIONAL NORM RATIO 2.8 (0.9-1.1); Prothrombin Time 32.2 SEC (10.9-12.4)
--- NOTE | 2024-12-16 14:39 | HO.PSYCHPN ---
Subjective Subjective Date of Service: 12/16/24 Reason For Visit: Paranoid Delusions Subjective Notes: Section 7 Interim History: Pt sleeping through the night. She is taking medications as prescribed. She presents as calmer, has been more visible, attending some groups. Still suspicious about how things are being done but with less intensity. No SI/HI. No aggression towards self or others. MOCA completed scored 25/30 impairments in visuospatial, attention, naming (2/3), recall (4/5), intact orientation. ACL 4.2 showing moderate cognitive impairment. Review of Systems Review of Systems Denies any shortness of breath, chest pain, or abdominal pain. Yes all other systems are reviewed and are negative Constitutional: Reports as per [facility] Mental Status Exam Mental Status Exam Narrative: Appearance: wearing hospital gown, fair hygiene, very restless Behavior: guarded and suspicious Psychomotor: somewhat tremolous. Speech: mostly clear, normal rate/rhythm/volume, spontaneous TP: repetitive, TC: paranoid ideas of different people entering her house and others including family trying to harm her. Mood: how would you feel? Affect: fearful, guarded, tearful SI: denies HI: denies VH/AH: no overt signs Delusions: paranoid delusions Insight/judgment: impaired x2 Memory/cog: alert,oriented to place, month, year. Not so much to situation. MOCA completed on 12/14/2024, scored 25/30 impairments in visuospatial, attention, naming (2/3), recall (4/5), intact orientation. ACL 4.2 showing moderate cognitive impairment. Diagnostics Vital Signs (24Hr): Vital Signs - 24 hr 12/15/24 20:00 12/16/24 08:19 Temperature 98.7 F 97.2 F Pulse Rate 96 92 Respiratory Rate 18 17 Blood Pressure 166/86 H 152/67 H Pulse Oximetry 94 95 Oxygen Delivery Method Room Air Room Air BMI result Body Mass Index 29.6 Labs 12/09/24 18:04 12/09/24 18:04 Labs: Laboratory Results - last 48 hr 12/15/24 12/16/24 07:27 10:26 PT 30.8 H 32.2 H INR 2.7 H 2.8 H Medications Medications Current Medications Acetaminophen (Acetaminophen 325 Mg Tablet) 650 mg PO Q6H PRN PRN Reason: Headache/Pain, Scale 1-10 Last Admin: 12/12/24 20:01 Dose: 650 mg Al Hydroxide/Mg Hydroxide (Magnesium Hydrox/Alum Hydrox 30 Ml Oral.Susp) 30 ml PO Q6H PRN PRN Reason: Heartburn/Nausea Amlodipine Besylate (Amlodipine Besylate 5 Mg Tablet) 5 mg PO DAILY [facility]; Protocol Last Admin: 12/16/24 08:48 Dose: 5 mg Furosemide (Furosemide 40 Mg Tablet) 40 mg PO DAILY@0730 [facility]; Protocol Last Admin: 12/16/24 08:48 Dose: 40 mg Gabapentin (Gabapentin 100 Mg Capsule) 100 mg PO BEDTIME [facility] Last Admin: 12/15/24 20:28 Dose: 100 mg Losartan Potassium (Losartan Potassium 50 Mg Tablet) 50 mg PO DAILY [facility]; Protocol Last Admin: 12/16/24 08:48 Dose: 50 mg Magnesium Hydroxide (Milk Of Magnesia 30 Ml Oral.Susp) 30 ml PO DAILY PRN PRN Reason: Constipation Potassium Chloride (Potassium Chloride Er 20 Meq Tab.Er.Prt) 20 meq PO BID [facility] Last Admin: 12/16/24 08:48 Dose: 20 meq Risperidone (Risperidone 0.5 Mg Tablet) 0.5 mg PO DAILY [facility] Last Admin: 12/16/24 08:49 Dose: 0.5 mg Risperidone (Risperidone 0.25 Mg Tablet) 0.75 mg PO BEDTIME [facility] Last Admin: 12/15/24 20:29 Dose: 0.75 mg Ropinirole HCl (Ropinirole Hcl 2 Mg Tablet) 4 mg PO DAILY@1800 [facility] Last Admin: 12/15/24 19:30 Dose: 4 mg Sertraline HCl (Sertraline Hcl 25 Mg Tablet) 75 mg PO DAILY [facility] Last Admin: 12/16/24 08:49 Dose: 75 mg Sotalol HCl (Sotalol Hcl 80 Mg Tablet) 160 mg PO BID [facility] Last Admin: 12/16/24 08:49 Dose: 160 mg Trazodone HCl (Trazodone Hcl 50 Mg Tablet) 50 mg PO BEDTIME [facility] Last Admin: 12/15/24 20:28 Dose: 50 mg Trazodone HCl (Trazodone Hcl 50 Mg Tablet) 50 mg PO BEDTIME PRN PRN Reason: Insomnia Last Admin: 12/16/24 03:25 Dose: 50 mg Warfarin Sodium (Warfarin Sodium 2 Mg Tablet) 2 mg PO DAILY@1800 [facility] Last Admin: 12/15/24 19:34 Dose: 2 mg Allergies Allergies Allergy/AdvReac Type Severity Reaction Status Date / Time naproxen Allergy Anaphylaxis Verified 12/09/24 16:28 Assessment & Plan Assessment & Plan (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 Mosher is an 89 year-old woman with hx of paranoid delusions since 2021. She had been dx with dementia with behavioral disturbances. She had been on olanzapine and risperidone. It appears that both medications were eventually discontinued. Pt declined warfarin worried that it is poisoned. She is suspicious of family and has declined their help. We discussed risks, benefits and alternative treatment options. restart risperidone 0.5mg po BID. Pending MOCA/ ACL. PLAN 12/11 continue tx. 12/12: continue to monitor PT/INR on Warfarin 2 mg daily 12/13: continue to monitor PT/INR on Warfarin 2 mg daily 12/14 continue tx. increase risperidone at night time, to 0.75mg po qhs, continue 0.5mg po daily. 12/15 We had family meeting discussed dx of vascular dementia and paranoid delusions related to dementing process not primarily psychiatric disorder. filed as pt on sect 12b and not stable to be discharged. 12/16 continue tx. Reason for continued inpatient stay Substantial Risk for: inability to function Time Spent With Patient Time: Total time managing care of this patient today ____ minutes.
[2024-12-16 20:00] VITALS: BP 116/60; PULSE 84; RESP 16; TEMP 36.7; O2SAT 93
[2024-12-17 08:00] VITALS: BP 142/68; PULSE 72; RESP 18; TEMP 36.8; O2SAT 93
[2024-12-17 08:58] LABS: INTERNATIONAL NORM RATIO 2.6 (0.9-1.1); Prothrombin Time 29.5 SEC (10.9-12.4)
[2024-12-17 10:46] VITALS: BP 142/68
[2024-12-17] MEDS: Potassium Chloride ER 20 MEQ TAB.ER.PRT PO ×2 (10:47→20:39)
--- NOTE | 2024-12-17 19:12 | P.PNPSI_ITS ---
Subjective Subjective Date of Service: 12/17/24 Reason For Visit: Paranoid Delusions Subjective Notes: Section 7 Interim History: Pt slept through the night. She is taking medications. She presents as very guarded, telling this writer technical publications that she is doing well and does not need anything else from this writer technical publications. She denies any physical concerns. MOCA completed scored 25/30 impairments in visuospatial, attention, naming (2/3), recall (4/5), intact orientation. ACL 4.2 showing moderate cognitive impairment. Review of Systems Review of Systems Denies any shortness of breath, chest pain, or abdominal pain. Yes all other systems are reviewed and are negative Constitutional: Reports as per [facility] Mental Status Exam Mental Status Exam Narrative: Appearance: wearing hospital gown, fair hygiene, very restless Behavior: guarded and suspicious Psychomotor: somewhat tremolous. Speech: mostly clear, normal rate/rhythm/volume, spontaneous TP: repetitive, TC: paranoid ideas of different people entering her house and others including family trying to harm her. Mood: how would you feel? Affect: fearful, guarded, tearful SI: denies HI: denies VH/AH: no overt signs Delusions: paranoid delusions Insight/judgment: impaired x2 Memory/cog: alert,oriented to place, month, year. Not so much to situation. MOCA completed on 12/14/2024, scored 25/30 impairments in visuospatial, attention, naming (2/3), recall (4/5), intact orientation. ACL 4.2 showing moderate cognitive impairment. Diagnostics Vital Signs (24Hr): Vital Signs - 24 hr 12/16/24 20:00 12/17/24 08:00 12/17/24 10:46 Temperature 98.1 F 98.2 F Pulse Rate 84 72 Respiratory Rate 16 18 Blood Pressure 116/60 142/68 H 142/68 H Pulse Oximetry 93 93 Oxygen Delivery Method Room Air Room Air BMI result Body Mass Index 30.0 Labs 12/09/24 18:04 12/09/24 18:04 Labs: Laboratory Results - last 48 hr 12/16/24 12/17/24 10:26 08:44 PT 32.2 H 29.5 H INR 2.8 H 2.6 H Medications Medications Current Medications Acetaminophen (Acetaminophen 325 Mg Tablet) 650 mg PO Q6H PRN PRN Reason: Headache/Pain, Scale 1-10 Last Admin: 12/12/24 20:01 Dose: 650 mg Al Hydroxide/Mg Hydroxide (Magnesium Hydrox/Alum Hydrox 30 Ml Oral.Susp) 30 ml PO Q6H PRN PRN Reason: Heartburn/Nausea Amlodipine Besylate (Amlodipine Besylate 5 Mg Tablet) 5 mg PO DAILY [facility]; Protocol Last Admin: 12/17/24 10:46 Dose: 5 mg Furosemide (Furosemide 40 Mg Tablet) 40 mg PO DAILY@0730 [facility]; Protocol Last Admin: 12/17/24 10:47 Dose: 40 mg Gabapentin (Gabapentin 100 Mg Capsule) 100 mg PO BEDTIME PRN PRN Reason: sleep Last Admin: 12/16/24 20:11 Dose: 100 mg Losartan Potassium (Losartan Potassium 50 Mg Tablet) 50 mg PO DAILY [facility]; Protocol Last Admin: 12/17/24 10:47 Dose: 50 mg Magnesium Hydroxide (Milk Of Magnesia 30 Ml Oral.Susp) 30 ml PO DAILY PRN PRN Reason: Constipation Potassium Chloride (Potassium Chloride Er 20 Meq Tab.Er.Prt) 20 meq PO BID [facility] Last Admin: 12/17/24 10:47 Dose: 20 meq Risperidone (Risperidone 0.5 Mg Tablet) 0.5 mg PO DAILY [facility] Last Admin: 12/17/24 10:46 Dose: 0.5 mg Risperidone (Risperidone 0.25 Mg Tablet) 0.75 mg PO BEDTIME [facility] Last Admin: 12/16/24 20:11 Dose: 0.75 mg Ropinirole HCl (Ropinirole Hcl 2 Mg Tablet) 4 mg PO DAILY@1800 [facility] Last Admin: 12/17/24 18:13 Dose: 4 mg Sertraline HCl (Sertraline Hcl 25 Mg Tablet) 75 mg PO DAILY [facility] Last Admin: 12/17/24 10:47 Dose: 75 mg Sotalol HCl (Sotalol Hcl 80 Mg Tablet) 160 mg PO BID [facility] Last Admin: 12/17/24 10:48 Dose: 160 mg Trazodone HCl (Trazodone Hcl 50 Mg Tablet) 50 mg PO BEDTIME [facility] Last Admin: 12/16/24 20:12 Dose: 50 mg Trazodone HCl (Trazodone Hcl 50 Mg Tablet) 50 mg PO BEDTIME PRN PRN Reason: Insomnia Last Admin: 12/16/24 03:25 Dose: 50 mg Warfarin Sodium (Warfarin Sodium 2 Mg Tablet) 2 mg PO DAILY@1800 [facility] Last Admin: 12/17/24 18:14 Dose: 2 mg Allergies Allergies Allergy/AdvReac Type Severity Reaction Status Date / Time naproxen Allergy Anaphylaxis Verified 12/09/24 16:28 Assessment & Plan Assessment & Plan (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 Mosher is an 89 year-old woman with hx of paranoid delusions since 2021. She had been dx with dementia with behavioral disturbances. She had been on olanzapine and risperidone. It appears that both medications were eventually discontinued. Pt declined warfarin worried that it is poisoned. She is suspicious of family and has declined their help. We discussed risks, benefits and alternative treatment options. restart risperidone 0.5mg po BID. Pending MOCA/ ACL. PLAN 12/11 continue tx. 12/12: continue to monitor PT/INR on Warfarin 2 mg daily 12/13: continue to monitor PT/INR on Warfarin 2 mg daily 12/14 continue tx. increase risperidone at night time, to 0.75mg po qhs, continue 0.5mg po daily. 12/15 We had family meeting discussed dx of vascular dementia and paranoid delusions related to dementing process not primarily psychiatric disorder. filed as pt on sect 12b and not stable to be discharged. 12/16 continue tx. 12/17 continue tx. Reason for continued inpatient stay Substantial Risk for: inability to function Time Spent With Patient Time: Total time managing care of this patient today ____ minutes.
[2024-12-17 20:00] VITALS: BP 117/62; PULSE 73; RESP 16; TEMP 36.6; O2SAT 93
[2024-12-18 08:00] VITALS: BP 174/82; PULSE 83; RESP 18; TEMP 36.9; O2SAT 93
[2024-12-18] MEDS: Potassium Chloride ER 20 MEQ TAB.ER.PRT PO ×2 (08:26→20:21)
[2024-12-18 08:46] LABS: INTERNATIONAL NORM RATIO 2.6 (0.9-1.1); Prothrombin Time 29.3 SEC (10.9-12.4)
[2024-12-18 12:30] VITALS: BP 98/56
--- NOTE | 2024-12-18 15:49 | HO.PSYCHPN ---
Subjective Subjective Date of Service: 12/18/24 Reason For Visit: Paranoid Delusions Subjective Notes: Section 7 Interim History: Pt slept through the night. She is taking medications. She presents as guarded, again telling this service writer that she is doing well and does not need anything else from this service writer. She denies any physical concerns. MOCA completed scored 25/30 impairments in visuospatial, attention, naming (2/3), recall (4/5), intact orientation. ACL 4.2 showing moderate cognitive impairment. Review of Systems Review of Systems Denies any shortness of breath, chest pain, or abdominal pain. Yes all other systems are reviewed and are negative Constitutional: Reports as per [facility] Mental Status Exam Mental Status Exam Narrative: Appearance: wearing hospital gown, fair hygiene, very restless Behavior: guarded and suspicious Psychomotor: somewhat tremolous. Speech: mostly clear, normal rate/rhythm/volume, spontaneous TP: repetitive, TC: paranoid ideas of different people entering her house and others including family trying to harm her. Mood: how would you feel? Affect: fearful, guarded, tearful SI: denies HI: denies VH/AH: no overt signs Delusions: paranoid delusions Insight/judgment: impaired x2 Memory/cog: alert,oriented to place, month, year. Not so much to situation. MOCA completed on 12/14/2024, scored 25/30 impairments in visuospatial, attention, naming (2/3), recall (4/5), intact orientation. ACL 4.2 showing moderate cognitive impairment. Diagnostics Vital Signs (24Hr): Vital Signs - 24 hr 12/17/24 20:00 12/18/24 08:00 12/18/24 12:30 Temperature 98 F 98.4 F Pulse Rate 73 83 Respiratory Rate 16 18 Blood Pressure 117/62 174/82 H 98/56 L Pulse Oximetry 93 93 Oxygen Delivery Method Room Air Room Air BMI result Body Mass Index 30.0 Labs 12/09/24 18:04 12/09/24 18:04 Labs: Laboratory Results - last 48 hr 12/17/24 12/18/24 08:44 08:05 PT 29.5 H 29.3 H INR 2.6 H 2.6 H Medications Medications Current Medications Acetaminophen (Acetaminophen 325 Mg Tablet) 650 mg PO Q6H PRN PRN Reason: Headache/Pain, Scale 1-10 Last Admin: 12/12/24 20:01 Dose: 650 mg Al Hydroxide/Mg Hydroxide (Magnesium Hydrox/Alum Hydrox 30 Ml Oral.Susp) 30 ml PO Q6H PRN PRN Reason: Heartburn/Nausea Amlodipine Besylate (Amlodipine Besylate 5 Mg Tablet) 5 mg PO DAILY [facility]; Protocol Last Admin: 12/18/24 08:26 Dose: 5 mg Furosemide (Furosemide 40 Mg Tablet) 40 mg PO DAILY@0730 [facility]; Protocol Last Admin: 12/18/24 08:26 Dose: 40 mg Gabapentin (Gabapentin 100 Mg Capsule) 100 mg PO BEDTIME PRN PRN Reason: sleep Last Admin: 12/17/24 20:40 Dose: 100 mg Losartan Potassium (Losartan Potassium 50 Mg Tablet) 50 mg PO DAILY [facility]; Protocol Last Admin: 12/18/24 08:26 Dose: 50 mg Magnesium Hydroxide (Milk Of Magnesia 30 Ml Oral.Susp) 30 ml PO DAILY PRN PRN Reason: Constipation Potassium Chloride (Potassium Chloride Er 20 Meq Tab.Er.Prt) 20 meq PO BID [facility] Last Admin: 12/18/24 08:26 Dose: 20 meq Risperidone (Risperidone 0.5 Mg Tablet) 0.5 mg PO DAILY [facility] Last Admin: 12/18/24 08:26 Dose: 0.5 mg Risperidone (Risperidone 0.25 Mg Tablet) 0.75 mg PO BEDTIME [facility] Last Admin: 12/17/24 20:39 Dose: 0.75 mg Ropinirole HCl (Ropinirole Hcl 2 Mg Tablet) 4 mg PO DAILY@1800 [facility] Last Admin: 12/17/24 18:13 Dose: 4 mg Sertraline HCl (Sertraline Hcl 25 Mg Tablet) 75 mg PO DAILY [facility] Last Admin: 12/18/24 08:26 Dose: 75 mg Sotalol HCl (Sotalol Hcl 80 Mg Tablet) 160 mg PO BID [facility] Last Admin: 12/18/24 08:26 Dose: 160 mg Trazodone HCl (Trazodone Hcl 50 Mg Tablet) 50 mg PO BEDTIME [facility] Last Admin: 12/17/24 20:40 Dose: 50 mg Trazodone HCl (Trazodone Hcl 50 Mg Tablet) 50 mg PO BEDTIME PRN PRN Reason: Insomnia Last Admin: 12/16/24 03:25 Dose: 50 mg Warfarin Sodium (Warfarin Sodium 2 Mg Tablet) 2 mg PO DAILY@1800 [facility] Last Admin: 12/17/24 18:14 Dose: 2 mg Allergies Allergies Allergy/AdvReac Type Severity Reaction Status Date / Time naproxen Allergy Anaphylaxis Verified 12/09/24 16:28 Assessment & Plan Assessment & Plan (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 Mosher is an 89 year-old woman with hx of paranoid delusions since 2021. She had been dx with dementia with behavioral disturbances. She had been on olanzapine and risperidone. It appears that both medications were eventually discontinued. Pt declined warfarin worried that it is poisoned. She is suspicious of family and has declined their help. We discussed risks, benefits and alternative treatment options. restart risperidone 0.5mg po BID. Pending MOCA/ ACL. PLAN 12/11 continue tx. 12/12: continue to monitor PT/INR on Warfarin 2 mg daily 12/13: continue to monitor PT/INR on Warfarin 2 mg daily 12/14 continue tx. increase risperidone at night time, to 0.75mg po qhs, continue 0.5mg po daily. 12/15 We had family meeting discussed dx of vascular dementia and paranoid delusions related to dementing process not primarily psychiatric disorder. filed as pt on sect 12b and not stable to be discharged. 12/16 continue tx. 12/17 continue tx. 12/18 continue tx. Reason for continued inpatient stay Substantial Risk for: inability to function Time Spent With Patient Time: Total time managing care of this patient today ____ minutes.
[2024-12-18 20:00] VITALS: BP 140/72; PULSE 79; RESP 16; TEMP 36; O2SAT 95
[2024-12-19 08:00] VITALS: BP 150/93; PULSE 89; RESP 16; TEMP 36.6; O2SAT 94
[2024-12-19 08:01] LABS: INTERNATIONAL NORM RATIO 2.6 (0.9-1.1); Prothrombin Time 30.0 SEC (10.9-12.4)
[2024-12-19] MEDS: Potassium Chloride ER 20 MEQ TAB.ER.PRT PO ×2 (08:15→20:30)
[2024-12-19 08:16] VITALS: BP 150/93
--- NOTE | 2024-12-19 16:43 | HO.PSYCHPN ---
Subjective Subjective Date of Service: 12/19/24 Reason For Visit: Paranoid Delusions Interim History: Pt slept through the night. Patient is paranoid and guarded. Denies SI/HI/AVH. She is taking medications. She denies any physical concerns. MOCA completed scored 25/30 impairments in visuospatial, attention, naming (2/3), recall (4/5), intact orientation. ACL 4.2 showing moderate cognitive impairment. Review of Systems Review of Systems Denies any shortness of breath, chest pain, or abdominal pain. Yes all other systems are reviewed and are negative Constitutional: Reports as per HPI Mental Status Exam Mental Status Exam Narrative: Appearance: wearing hospital gown, fair hygiene, very restless Behavior: guarded and suspicious Psychomotor: somewhat tremolous. Speech: mostly clear, normal rate/rhythm/volume, spontaneous TP: repetitive, TC: paranoid ideas of different people entering her house and others including family trying to harm her. Mood: how would you feel? Affect: fearful, guarded, tearful SI: denies HI: denies VH/AH: no overt signs Delusions: paranoid delusions Insight/judgment: impaired x2 Memory/cog: alert,oriented to place, month, year. Not so much to situation. MOCA completed on 12/14/2024, scored 25/30 impairments in visuospatial, attention, naming (2/3), recall (4/5), intact orientation. ACL 4.2 showing moderate cognitive impairment. Diagnostics Vital Signs (24Hr): Vital Signs - 24 hr 12/18/24 20:00 12/19/24 08:00 12/19/24 08:16 Temperature 96.8 F 97.9 F Pulse Rate 79 89 Respiratory Rate 16 16 Blood Pressure 140/72 H 150/93 H 150/93 H Pulse Oximetry 95 94 Oxygen Delivery Method Room Air Room Air 12/19/24 08:16 12/19/24 08:16 Temperature Pulse Rate Respiratory Rate Blood Pressure 150/93 H 150/93 H Pulse Oximetry Oxygen Delivery Method BMI result Body Mass Index 30.0 Labs 12/09/24 18:04 12/09/24 18:04 Labs: Laboratory Results - last 48 hr 12/18/24 12/19/24 08:05 07:30 PT 29.3 H 30.0 H INR 2.6 H 2.6 H Medications Medications Current Medications Acetaminophen (Acetaminophen 325 Mg Tablet) 650 mg PO Q6H PRN PRN Reason: Headache/Pain, Scale 1-10 Last Admin: 12/12/24 20:01 Dose: 650 mg Al Hydroxide/Mg Hydroxide (Magnesium Hydrox/Alum Hydrox 30 Ml Oral.Susp) 30 ml PO Q6H PRN PRN Reason: Heartburn/Nausea Amlodipine Besylate (Amlodipine Besylate 5 Mg Tablet) 5 mg PO DAILY [facility]; Protocol Last Admin: 12/19/24 08:16 Dose: 5 mg Furosemide (Furosemide 40 Mg Tablet) 40 mg PO DAILY@0730 [facility]; Protocol Last Admin: 12/19/24 08:16 Dose: 40 mg Gabapentin (Gabapentin 100 Mg Capsule) 100 mg PO BEDTIME PRN PRN Reason: sleep Last Admin: 12/17/24 20:40 Dose: 100 mg Losartan Potassium (Losartan Potassium 50 Mg Tablet) 50 mg PO DAILY [facility]; Protocol Last Admin: 12/19/24 08:16 Dose: 50 mg Magnesium Hydroxide (Milk Of Magnesia 30 Ml Oral.Susp) 30 ml PO DAILY PRN PRN Reason: Constipation Potassium Chloride (Potassium Chloride Er 20 Meq Tab.Er.Prt) 20 meq PO BID [facility] Last Admin: 12/19/24 08:15 Dose: 20 meq Risperidone (Risperidone 0.5 Mg Tablet) 0.5 mg PO DAILY [facility] Last Admin: 12/19/24 08:16 Dose: 0.5 mg Risperidone (Risperidone 0.25 Mg Tablet) 0.75 mg PO BEDTIME [facility] Last Admin: 12/18/24 20:21 Dose: 0.75 mg Ropinirole HCl (Ropinirole Hcl 2 Mg Tablet) 4 mg PO DAILY@1800 [facility] Last Admin: 12/18/24 17:49 Dose: 4 mg Sertraline HCl (Sertraline Hcl 25 Mg Tablet) 75 mg PO DAILY [facility] Last Admin: 12/19/24 08:15 Dose: 75 mg Sotalol HCl (Sotalol Hcl 80 Mg Tablet) 160 mg PO BID [facility] Last Admin: 12/19/24 08:15 Dose: 160 mg Trazodone HCl (Trazodone Hcl 50 Mg Tablet) 50 mg PO BEDTIME [facility] Last Admin: 12/18/24 20:21 Dose: 50 mg Trazodone HCl (Trazodone Hcl 50 Mg Tablet) 50 mg PO BEDTIME PRN PRN Reason: Insomnia Last Admin: 12/18/24 22:57 Dose: 50 mg Warfarin Sodium (Warfarin Sodium 2 Mg Tablet) 2 mg PO DAILY@1800 [facility] Last Admin: 12/18/24 17:49 Dose: 2 mg Allergies Allergies Allergy/AdvReac Type Severity Reaction Status Date / Time naproxen Allergy Anaphylaxis Verified 12/09/24 16:28 Assessment & Plan Assessment & Plan (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 Mosher is an 89 year-old woman with hx of paranoid delusions since 2021. She had been dx with dementia with behavioral disturbances. She had been on olanzapine and risperidone. It appears that both medications were eventually discontinued. Pt declined warfarin worried that it is poisoned. She is suspicious of family and has declined their help. We discussed risks, benefits and alternative treatment options. restart risperidone 0.5mg po BID. Pending MOCA/ ACL. PLAN 12/11 continue tx. 12/12: continue to monitor PT/INR on Warfarin 2 mg daily 12/13: continue to monitor PT/INR on Warfarin 2 mg daily 12/14 continue tx. increase risperidone at night time, to 0.75mg po qhs, continue 0.5mg po daily. 12/15 We had family meeting discussed dx of vascular dementia and paranoid delusions related to dementing process not primarily psychiatric disorder. filed as pt on sect 12b and not stable to be discharged. 12/16 continue tx. 12/17 continue tx. 12/18 continue tx. 12/19: Continue current management and treatment plan. Reason for continued inpatient stay Substantial Risk for: inability to function, rapid decompensation and med/psych decompensation Time Spent With Patient Time: Total time managing care of this patient today ____ minutes.
[2024-12-19 20:00] VITALS: BP 117/60; PULSE 94; RESP 16; TEMP 37; O2SAT 98
[2024-12-20 08:34] VITALS: BP 170/90; PULSE 73; RESP 16; TEMP 36.3; O2SAT 93
[2024-12-20 10:52] VITALS: BP 170/90
[2024-12-20] MEDS: Potassium Chloride ER 20 MEQ TAB.ER.PRT PO ×2 (10:52→20:38)
[2024-12-20 10:53] VITALS: BP 170/90
[2024-12-20 11:40] LABS: INTERNATIONAL NORM RATIO 2.5 (0.9-1.1); Prothrombin Time 28.8 SEC (10.9-12.4)
--- NOTE | 2024-12-20 16:10 | HO.PSYCHPN ---
Subjective Subjective Date of Service: 12/20/24 Reason For Visit: Paranoid Delusions Interim History: Says she doesn't believe she has dementia. She says she is able to take care of her own while living alone. Says she drives and does her own shopping. My memory is spot on. She is dismissive of concerns and smiles sarcastically. Pt slept through the night. Patient denies SI/HI/AVH. She is taking medications. She denies any physical concerns. Review of Systems Review of Systems Denies any shortness of breath, chest pain, or abdominal pain. Yes all other systems are reviewed and are negative Constitutional: Reports as per HPI Mental Status Exam Mental Status Exam Narrative: Appearance: wearing hospital gown, fair hygiene, very restless Behavior: guarded and suspicious Psychomotor: somewhat tremolous. Speech: mostly clear, normal rate/rhythm/volume, spontaneous TP: repetitive, TC: paranoid ideas of different people entering her house and others including family trying to harm her. Mood: how would you feel? Affect: fearful, guarded, tearful SI: denies HI: denies VH/AH: no overt signs Delusions: paranoid delusions Insight/judgment: impaired x2 Memory/cog: alert,oriented to place, month, year. Not so much to situation. MOCA completed on 12/14/2024, scored 25/30 impairments in visuospatial, attention, naming (2/3), recall (4/5), intact orientation. ACL 4.2 showing moderate cognitive impairment. Diagnostics Vital Signs (24Hr): Vital Signs - 24 hr 12/19/24 20:00 12/20/24 08:34 12/20/24 10:52 Temperature 98.6 F 97.3 F Pulse Rate 94 73 Respiratory Rate 16 16 Blood Pressure 117/60 170/90 H 170/90 H Pulse Oximetry 98 93 Oxygen Delivery Method Room Air 12/20/24 10:52 12/20/24 10:53 Temperature Pulse Rate Respiratory Rate Blood Pressure 170/90 H 170/90 H Pulse Oximetry Oxygen Delivery Method BMI result Body Mass Index 30.0 Labs 12/09/24 18:04 12/09/24 18:04 Labs: Laboratory Results - last 48 hr 12/19/24 12/20/24 07:30 08:19 PT 30.0 H 28.8 H INR 2.6 H 2.5 H Medications Medications Current Medications Acetaminophen (Acetaminophen 325 Mg Tablet) 650 mg PO Q6H PRN PRN Reason: Headache/Pain, Scale 1-10 Last Admin: 12/12/24 20:01 Dose: 650 mg Al Hydroxide/Mg Hydroxide (Magnesium Hydrox/Alum Hydrox 30 Ml Oral.Susp) 30 ml PO Q6H PRN PRN Reason: Heartburn/Nausea Amlodipine Besylate (Amlodipine Besylate 5 Mg Tablet) 5 mg PO DAILY [facility]; Protocol Last Admin: 12/20/24 10:52 Dose: 5 mg Furosemide (Furosemide 40 Mg Tablet) 40 mg PO DAILY@0730 [facility]; Protocol Last Admin: 12/20/24 10:53 Dose: 40 mg Gabapentin (Gabapentin 100 Mg Capsule) 100 mg PO BEDTIME PRN PRN Reason: sleep Last Admin: 12/19/24 20:31 Dose: 100 mg Losartan Potassium (Losartan Potassium 50 Mg Tablet) 50 mg PO DAILY [facility]; Protocol Last Admin: 12/20/24 10:52 Dose: 50 mg Magnesium Hydroxide (Milk Of Magnesia 30 Ml Oral.Susp) 30 ml PO DAILY PRN PRN Reason: Constipation Potassium Chloride (Potassium Chloride Er 20 Meq Tab.Er.Prt) 20 meq PO BID [facility] Last Admin: 12/20/24 10:52 Dose: 20 meq Risperidone (Risperidone 0.5 Mg Tablet) 0.5 mg PO DAILY [facility] Last Admin: 12/20/24 10:51 Dose: 0.5 mg Risperidone (Risperidone 0.25 Mg Tablet) 0.75 mg PO BEDTIME [facility] Last Admin: 12/19/24 20:30 Dose: 0.75 mg Ropinirole HCl (Ropinirole Hcl 2 Mg Tablet) 4 mg PO DAILY@1800 [facility] Last Admin: 12/19/24 17:44 Dose: 4 mg Sertraline HCl (Sertraline Hcl 25 Mg Tablet) 75 mg PO DAILY [facility] Last Admin: 12/20/24 10:53 Dose: 75 mg Sotalol HCl (Sotalol Hcl 80 Mg Tablet) 160 mg PO BID [facility] Last Admin: 12/20/24 10:53 Dose: 160 mg Trazodone HCl (Trazodone Hcl 50 Mg Tablet) 50 mg PO BEDTIME [facility] Last Admin: 12/19/24 20:31 Dose: 50 mg Trazodone HCl (Trazodone Hcl 50 Mg Tablet) 50 mg PO BEDTIME PRN PRN Reason: Insomnia Last Admin: 12/18/24 22:57 Dose: 50 mg Warfarin Sodium (Warfarin Sodium 2 Mg Tablet) 2 mg PO DAILY@1800 [facility] Last Admin: 12/19/24 17:45 Dose: 2 mg Allergies Allergies Allergy/AdvReac Type Severity Reaction Status Date / Time naproxen Allergy Anaphylaxis Verified 12/09/24 16:28 Assessment & Plan Assessment & Plan (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 Mosher is an 89 year-old woman with hx of paranoid delusions since 2021. She had been dx with dementia with behavioral disturbances. She had been on olanzapine and risperidone. It appears that both medications were eventually discontinued. Pt declined warfarin worried that it is poisoned. She is suspicious of family and has declined their help. We discussed risks, benefits and alternative treatment options. restart risperidone 0.5mg po BID. Pending MOCA/ ACL. PLAN 12/11 continue tx. 12/12: continue to monitor PT/INR on Warfarin 2 mg daily 12/13: continue to monitor PT/INR on Warfarin 2 mg daily 12/14 continue tx. increase risperidone at night time, to 0.75mg po qhs, continue 0.5mg po daily. 12/15 We had family meeting discussed dx of vascular dementia and paranoid delusions related to dementing process not primarily psychiatric disorder. filed as pt on sect 12b and not stable to be discharged. 12/16 continue tx. 12/17 continue tx. 12/18 continue tx. 12/19: Continue current management and treatment plan. 12/20: continue current management and treatment plan. Reason for continued inpatient stay Substantial Risk for: inability to function and rapid decompensation Time Spent With Patient Time: Total time managing care of this patient today ____ minutes.
[2024-12-20 20:00] VITALS: BP 150/70; PULSE 89; RESP 18; TEMP 36.6; O2SAT 94
[2024-12-21 07:52] LABS: INTERNATIONAL NORM RATIO 2.4 (0.9-1.1); Prothrombin Time 27.7 SEC (10.9-12.4)
[2024-12-21 08:00] VITALS: BP 144/80; PULSE 91; RESP 17; TEMP 36.6; O2SAT 94
[2024-12-21 08:17] VITALS: BP 144/80
[2024-12-21] MEDS: Potassium Chloride ER 20 MEQ TAB.ER.PRT PO ×2 (08:17→19:48)
[2024-12-21 08:18] VITALS: BP 144/80
--- NOTE | 2024-12-21 08:34 | HO.PSYCHPN ---
Subjective Subjective Date of Service: 12/21/24 Reason For Visit: Paranoid Delusions Subjective Notes: Section 7 Interim History: Pt sleeping through the night. She has been visible on the unit. She is guarded and declines talking with medical underwriter. She reports her daughter is coming and she is suspicious about this medical underwriter not knowing. This medical underwriter explained that she may be coming to visit her but not necessarily meeting with this medical underwriter. She has been taking medications as prescribed. No behavioral concerns. She is taking medications. Medication Compliance: Yes Diagnostics Vital Signs (24Hr): Vital Signs - 24 hr 12/20/24 10:52 12/20/24 10:52 12/20/24 10:53 Temperature Pulse Rate Respiratory Rate Blood Pressure 170/90 H 170/90 H 170/90 H Pulse Oximetry Oxygen Delivery Method 12/20/24 20:00 12/21/24 08:17 12/21/24 08:17 Temperature 97.8 F Pulse Rate 89 Respiratory Rate 18 Blood Pressure 150/70 H 144/80 H 144/80 H Pulse Oximetry 94 Oxygen Delivery Method Room Air 12/21/24 08:18 Temperature Pulse Rate Respiratory Rate Blood Pressure 144/80 H Pulse Oximetry Oxygen Delivery Method BMI result Body Mass Index 30.0 Labs 12/09/24 18:04 12/09/24 18:04 Labs: Laboratory Results - last 48 hr 12/20/24 12/21/24 08:19 07:40 PT 28.8 H 27.7 H INR 2.5 H 2.4 H Medications Medications Current Medications Acetaminophen (Acetaminophen 325 Mg Tablet) 650 mg PO Q6H PRN PRN Reason: Headache/Pain, Scale 1-10 Last Admin: 12/12/24 20:01 Dose: 650 mg Al Hydroxide/Mg Hydroxide (Magnesium Hydrox/Alum Hydrox 30 Ml Oral.Susp) 30 ml PO Q6H PRN PRN Reason: Heartburn/Nausea Amlodipine Besylate (Amlodipine Besylate 5 Mg Tablet) 5 mg PO DAILY [facility]; Protocol Last Admin: 12/21/24 08:17 Dose: 5 mg Furosemide (Furosemide 40 Mg Tablet) 40 mg PO DAILY@0730 [facility]; Protocol Last Admin: 12/21/24 08:18 Dose: 40 mg Gabapentin (Gabapentin 100 Mg Capsule) 100 mg PO BEDTIME PRN PRN Reason: sleep Last Admin: 12/20/24 20:36 Dose: 100 mg Losartan Potassium (Losartan Potassium 50 Mg Tablet) 50 mg PO DAILY [facility]; Protocol Last Admin: 12/21/24 08:17 Dose: 50 mg Magnesium Hydroxide (Milk Of Magnesia 30 Ml Oral.Susp) 30 ml PO DAILY PRN PRN Reason: Constipation Potassium Chloride (Potassium Chloride Er 20 Meq Tab.Er.Prt) 20 meq PO BID [facility] Last Admin: 12/21/24 08:17 Dose: 20 meq Risperidone (Risperidone 0.5 Mg Tablet) 0.5 mg PO DAILY [facility] Last Admin: 12/21/24 08:18 Dose: 0.5 mg Risperidone (Risperidone 0.25 Mg Tablet) 0.75 mg PO BEDTIME [facility] Last Admin: 12/20/24 20:35 Dose: 0.75 mg Ropinirole HCl (Ropinirole Hcl 2 Mg Tablet) 4 mg PO DAILY@1800 [facility] Last Admin: 12/20/24 17:34 Dose: 4 mg Sertraline HCl (Sertraline Hcl 25 Mg Tablet) 75 mg PO DAILY [facility] Last Admin: 12/21/24 08:16 Dose: 75 mg Sotalol HCl (Sotalol Hcl 80 Mg Tablet) 160 mg PO BID [facility] Last Admin: 12/21/24 08:17 Dose: 160 mg Trazodone HCl (Trazodone Hcl 50 Mg Tablet) 50 mg PO BEDTIME [facility] Last Admin: 12/20/24 20:37 Dose: 50 mg Trazodone HCl (Trazodone Hcl 50 Mg Tablet) 50 mg PO BEDTIME PRN PRN Reason: Insomnia Last Admin: 12/18/24 22:57 Dose: 50 mg Warfarin Sodium (Warfarin Sodium 2 Mg Tablet) 2 mg PO DAILY@1800 [facility] Last Admin: 12/20/24 17:33 Dose: 2 mg Allergies Allergies Allergy/AdvReac Type Severity Reaction Status Date / Time naproxen Allergy Anaphylaxis Verified 12/09/24 16:28 Assessment & Plan Assessment & Plan (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 Mosher is an 89 year-old woman with hx of paranoid delusions since 2021. She had been dx with dementia with behavioral disturbances. She had been on olanzapine and risperidone. It appears that both medications were eventually discontinued. Pt declined warfarin worried that it is poisoned. She is suspicious of family and has declined their help. We discussed risks, benefits and alternative treatment options. restart risperidone 0.5mg po BID. Pending MOCA/ ACL. PLAN 12/11 continue tx. 12/12: continue to monitor PT/INR on Warfarin 2 mg daily 12/13: continue to monitor PT/INR on Warfarin 2 mg daily 12/14 continue tx. increase risperidone at night time, to 0.75mg po qhs, continue 0.5mg po daily. 12/15 We had family meeting discussed dx of vascular dementia and paranoid delusions related to dementing process not primarily psychiatric disorder. filed as pt on sect 12b and not stable to be discharged. 12/16 continue tx. 12/17 continue tx. 12/18 continue tx. 12/19: Continue current management and treatment plan. 12/20: continue current management and treatment plan. 12/21 continue tx. Reason for continued inpatient stay Substantial Risk for: inability to function Time Spent With Patient Time: Total time managing care of this patient today ____ minutes.
[2024-12-21 19:45] VITALS: BP 105/56; PULSE 98; TEMP 36.2; O2SAT 95
[2024-12-22 08:00] VITALS: BP 133/67; PULSE 84; RESP 16; TEMP 36.4; O2SAT 96
[2024-12-22] MEDS: Potassium Chloride ER 20 MEQ TAB.ER.PRT PO (08:20)
[2024-12-22 08:21] VITALS: BP 133/67
[2024-12-22 08:22] VITALS: BP 133/67
--- NOTE | 2024-12-22 09:52 | PM.PSYDC ---
DS: Providers Provider Date of Service: 12/22/24 Date of admission: 12/10/24 13:16 Date of discharge: 12/22/24 Primary care physician: Sixot Bustamante MD Consults: 12/10/24 13:16 Consult to Hospitalist Routine Comment: Consulting Provider: [facility] Reason For Exam: inr subtherapeutic on warfarin DS: Diagnosis Discharge Diagnosis (1) Major neurocognitive disorder due to another medical condition with behavioral disturbance: Status: Acute DS: Medications Discharge Medications Home Medications: Home Medications ?Medication ?Instructions ?Recorded ?Confirmed acetaminophen 325 mg tablet 325 mg PO QID PRN Mild Pain (Scale 12/07/24 12/09/24 Score 1-4) amlodipine 5 mg tablet 5 mg PO DAILY 12/07/24 12/09/24 furosemide 40 mg tablet 40 mg PO DAILY@0730 12/07/24 12/09/24 losartan 50 mg tablet 50 mg PO DAILY 12/07/24 12/09/24 potassium chloride 20 mEq 20 meq PO BID 12/07/24 12/09/24 tablet,extended release(part/cryst) sotalol 160 mg tablet 160 mg PO BID 12/07/24 12/09/24 trazodone 50 mg tablet 50 mg PO BEDTIME 12/07/24 12/09/24 warfarin 2 mg tablet See Rx Instructions .Route .COMPLEX 12/07/24 12/09/24 sertraline 50 mg tablet 75 mg PO DAILY 12/09/24 12/09/24 ropinirole 2 mg tablet 4 mg PO BEDTIME 12/11/24 12/11/24 Mental Status Exam Mental Status Exam Narrative: Appearance: wearing hospital gown, fair hygiene, very restless Behavior: guarded and suspicious Psychomotor: somewhat tremolous. Speech: mostly clear, normal rate/rhythm/volume, spontaneous TP: repetitive, TC: paranoid ideas of different people entering her house and others including family trying to harm her. Mood: how would you feel? Affect: fearful, guarded, tearful SI: denies HI: denies VH/AH: no overt signs Delusions: paranoid delusions Insight/judgment: impaired x2 Memory/cog: alert,oriented to place, month, year. Not so much to situation. MOCA completed on 12/14/2024, scored 25/30 impairments in visuospatial, attention, naming (2/3), recall (4/5), intact orientation. ACL 4.2 showing moderate cognitive impairment. Data Data Completed and Pending Completed studies during hospitalization [Text1]: 12/16/24 12/17/24 12/18/24 10:26 08:44 08:05 PT 32.2 H 29.5 H 29.3 H INR 2.8 H 2.6 H 2.6 H 12/19/24 12/20/24 12/21/24 07:30 08:19 07:40 PT 30.0 H 28.8 H 27.7 H INR 2.6 H 2.5 H 2.4 H 12/22/24 08:43 PT Pending INR Pending DS: Summary Hospital Course Hospital Course: Mrs. Mosher is a 89 year-old woman who has had episodes of paranoid delusions since 2021 intermittently. She had appointment with with neurology on 12/09 completed mini mental scored 29/30. He referred to [facility] with plan to be assessed by psychiatry. Pertinent labs completed in the ED include CBC unremarkable. CMP without electrolyte abnormalities, BUN 14, Cr. 0.56, creatinine clearance 59. UA wnl, not suggestive of UTI. Utox is negative. MRI back in 11/20/[address] [facility] with mild microvascular changes and mild atrophy. Pt seen with cole. Pt presents as very anxious and upset with daughter. She reports daughter is lying and she knows that someone has been going to her house. Pt is guarded to disclose this information to this blurb writer as she states I am not crazy, I should not be here. She says to this blurb writer you know what is going on, why do you do this. When asked to elaborate as to what this blurb writer is doing, pt continues to state that one day the truth will come up and someone will come forward and admit what they did. Any attempts to redirect conversation were unsuccessful as pt continues to report that she wants to go home although suspicious about who may be coming to her home and taking or changing things from her house. She denies SI/HI. She reports fair sleep. No changes in appetite. Collateral information gathered from her daughter who reports that pt has been presenting with paranoid delusions since 2021. She was admitted at [facility] and given dx of dementia with psychosis. Daughter reports that pt appeared well and PCP had wonder if in fact she had dementia. She has been on olanzapine but this was stopped. Pt was then admitted to [facility] again and started on risperidone which apparently helped but it was tapered off while she went to short term rehab. Daughter reports that paranoia has isolated her from the other adult children and her neighbors and that she is very suspicious of family and friends. Pt declined medications this morning, including warfarin as she thought it was not what they said it was. Pt reports not feeling safe here in the hospital. HOSPITAL COURSE On the unit, pt was admitted on a sect 12b. She presented with paranoid delusions, guarded, thinking people were doing things to her to hurt her in anyway. She also presented with irritable edge. No aggression towards self or others. She was started on risperidone which was titrated to 0.5mg po daily and 1mg po qhs. Her affect gradually presented as calm. She was more visible on the unit, social with select peers. There were no incidences of disruptive behaviors nor need for restraints. Suspiciousness continued even at time of discharge but with less intensity. VS was stable. She is on warfarin, needs to continue going to warfarin clinic. Paranoid delusions seem to be related to underlying neurocognitive disorder vascular type. MOCA was completed she scored 25/30 showing a pattern of impairment consistent with vascular changes in the brain. ACL score was 4.2 shows moderate cognitive impairments- requires some support managing medications and finances. Status at Discharge Cognitive/behavioral status at discharge: Pt with brighter affect. No SI/HI. No overt psychosis. residual paranoid ideas. Sleeping and eating well. less irritable. Functional status at discharge: independent ambulation Time Spent with Patient Time attestation: Total time managing care of this patient today _45___ minutes. Time spent: Greater than 30 minutes Discharge Plan Discharge Anticipated Discharge Date/Time: 12/22/24 09:52 Patient Disposition: Home, Self-Care Discharge Diagnosis: Major Neurocognitive Disorder- vascular type Referrals: Sixto Bustamante MD [Primary Care Provider, Internal Medicine] - 12/28/24 10:30 am Referral Note: You will see on dec 28 at 10:30 AM. If you need to cancel or reschedule the appointment please call [email or web address] number listed. Jazmin Robbins NP [Nurse Practitioner, Physiatry] - 12/29/24 11:00 am Discharge Medications: New losartan 50 mg Tablet 50 mg PO DAILY Qty: 30 0RF Protocol: Hold for SBP< HOLD for SBP < : 90 sotalol 80 mg Tablet 160 mg PO BID Qty: 0 0RF amlodipine 5 mg Tablet 5 mg PO DAILY Qty: 30 0RF Protocol: Hold for SBP< HOLD for SBP < : 90 warfarin [Jantoven] 2 mg Tablet 2 mg PO DAILY@1800 Qty: 7 0RF gabapentin 100 mg Capsule 100 mg PO BEDTIME PRN (Reason: sleep) Qty: 30 0RF furosemide 40 mg Tablet 40 mg PO DAILY@0730 Qty: 30 0RF Protocol: Hold for SBP< HOLD for SBP < : 90 trazodone 50 mg Tablet 50 mg PO BEDTIME Qty: 30 0RF potassium chloride 20 mEq Tablet,Er Particles/Crystals 20 meq PO BID Qty: 60 0RF ropinirole 2 mg Tablet 4 mg PO DAILY@1800 Qty: 60 0RF sertraline 25 mg Tablet 75 mg PO DAILY Qty: 90 0RF risperidone 1 mg tablet 1 mg PO BEDTIME Qty: 30 0RF risperidone 0.5 mg Tablet 0.5 mg PO DAILY Qty: 30 0RF Continued sotalol 160 mg tablet 160 mg PO BID Qty: 60 0RF acetaminophen 325 mg tablet 325 mg PO QID PRN (Reason: Mild Pain (Scale Score 1-4)) warfarin 2 mg tablet See Rx Instructions .ROUTE .COMPLEX Rx Instructions: FROM CLINIC ( 6MG TODAY 12/09, THEN 2 MG 12/10, 3 MG 12/11, 2 MG ON 12/12 AND 12/13. NEXT NEW LAB DRAW Discontinued ropinirole 2 mg tablet 4 mg PO BEDTIME losartan 50 mg tablet 50 mg PO DAILY furosemide 40 mg tablet 40 mg PO DAILY@30 trazodone 50 mg tablet 50 mg PO BEDTIME amlodipine 5 mg tablet 5 mg PO DAILY potassium chloride 20 mEq tablet,ER particles/crystals 20 meq PO BID sertraline 50 mg tablet 75 mg PO DAILY Discharge Orders: Discharge Order (Routine); Ordered 12/22/24 Ordered By: Shira Berg Diet: Low salt diet Activity on Discharge: As tolerated Stand Alone Forms: Patient Portal Discharge page Print Language: Bulgarian Care Plan Goals: 1. Maintain mood 2. No SI/HI 3. No aggression towards self or others. Health Concerns: Follow up with coumadin clinic Follow up with PCP for routine care Plan of Treatment: 1. Take medications as prescribed 2. Go to nearest ED or call 911 in event of emergency Assessment: Pt with brighter, non labile affect. No SI/HI. No VH/AH. Sleeping and eating well. suspiciousness is still present with less intensity.
== END 2024-12-22 14:14 | disposition home or self-care (01) | DRG 884 ==
LOC: HO.ED 12-10 13:58 → HO.PGERI 12-10 14:28
PROVIDERS: Internal Medicine; Physician Assistant; Physician Assistant Medical; Admitting Provider Social Worker; Emergency Provider Emergency Medicine Emergency Medical Services; PCP Internal Medicine; Visit Provider Social Worker
DX: F01.518 Vascular dementia, unspecified severity, with other behavioral disturbance (principal); I48.20 Chronic atrial fibrillation, unspecified; I25.10 Atherosclerotic heart disease of native coronary artery without angina pectoris; R79.1 Abnormal coagulation profile; Z95.2 Presence of prosthetic heart valve; Z79.01 Long term (current) use of anticoagulants; Z79.899 Other long term (current) drug therapy
CPT/HCPCS: 36415; 80053; 80143; 80179; 80307; 81001; 83690; 83735; 85025; 85610; 93005; 99202; 99285; S9485

== ENCOUNTER → 2024-12-09 16:33 | Outpatient (BNV) | payer MEDICARE, SELFPAY | PROVIDERS: Admitting Provider Social Worker; Emergency Provider Emergency Medicine Emergency Medical Services; PCP Internal Medicine; Visit Provider Internal Medicine | DX: I45.10 Unspecified right bundle-branch block (principal); I49.9 Cardiac arrhythmia, unspecified | CPT/HCPCS: 93010 ==

== ENCOUNTER → 2024-12-10 13:16 | Outpatient (BNV) | payer MEDICARE, SELFPAY | PROVIDERS: Admitting Provider Social Worker; Emergency Provider Emergency Medicine Emergency Medical Services; PCP Internal Medicine; Visit Provider Physician Assistant | DX: I48.20 Chronic atrial fibrillation, unspecified (principal) | CPT/HCPCS: 99221; 99499 ==

== ENCOUNTER → 2024-12-10 13:16 | Outpatient (BNV) | payer MEDICARE, SELFPAY | PROVIDERS: Admitting Provider Social Worker; Emergency Provider Emergency Medicine Emergency Medical Services; PCP Internal Medicine; Visit Provider Social Worker | DX: F03.918 Unspecified dementia, unspecified severity, with other behavioral disturbance (principal) | CPT/HCPCS: 99231; 99232; 99239 ==